=== PATIENT | female | born 1940 | race Caucasian/White ===

== ENCOUNTER 2016-07-06 13:46 | Emergency (ER) | payer MEDICARE ==
[~2016-07-06 13:46] MED LIST: ACETAMINOPHEN-H1 TA2 PO; ADVAIR 250/501 EA INH; AGGRENOX 25 MG-1 CER PO; AGGRENOX 25/2001 EA; ALBUTEROL0.09 MG/A2 IH; ALBUTEROL2.5 MG/0.5 INH; ANAPROX DS550 MG PO; ANTIVERT25 MG PO; APRESOLINE50 MG PO; ASMANEX TW0.22 MG/A1 INH; ASMANEX220 MC1 INH; ASPIR 8181 MG PO; ASPIRIN81 M1 PO; ATIVAN1 MG PO; ATROVENT I0.5 MG/2.5 INH; Atrovent I0.5 MG/2.5 INH; BENTYL10 MG PO; BUMEX1 MG PO; CALCIUM + D 5001 TAB PO; CARAFATE1 G1 PO; CARVEDILOL12.5 MG PO; CATAPRES0.1 MG PO; CATAPRES0.2 MG PO; CEFEPIME1 GM/50 ML; CEFTIN250 MG PO; CIPRO500 MG PO; CLARITIN10 MG PO; CLEOCIN HCL150 MG PO; CLEOCIN150 MG PO; CLONIDINE0.1 MG PO; CLONIDINE0.2 MG; CLONIDINE0.2 MG PO; CLONIDINE0.3 MG PO; COREG12.5 M1 PO; COREG25 MG PO; CORTISPORIN 1%-10 M1 OT; CORTISPORIN 1%7.5 M1 OP; Carafate1 GM PO; Catapres-Tts 10.1 MG PO; DELTASONE5 MG PO; DIGOXIN0.125 MG PO; DOXYCYCLINE HY100 M3 PO; DOXYCYCLINE100 M3 PO; DULE1ARO INH; DUONEB 3 MG/3 ML3 M1 INH; DUONEB 3 MG/3 ML3 M1 NEB; DUONEB 3ML 3 MG/3 ML; ENULOSE10 GM/15 M PO; FERRIMIN 150150 M1 PO; FLAGYL500 MG PO; FLEET ADULT ENEM1 EA PO; FLEXERIL10 MG PO; FLONASE 0.05% 121 EA NAS; FLONASE0.05 MG/AC NS; HYDRALAZINE HC100 MG PO; HYDRALAZINE100 MG PO; IMDUR SA60 MG PO; IMDUR120 MG PO; KEFLEX500 MG PO; KENALOG0.1% TP; KRISTALOSE20 GM/PACK; LABETALOL HYDR300 MG PO; LISINOPRIL20 MG PO; LOMOTIL 0.025 M1 TA1 PO; MACROBID100 M1 PO; MACRODANTIN100 MG PO; MEDROL DOSEPAK4 MG PO; METFORMIN HCL500 MG PO; METFORMIN500 MG PO; METOPROLOL50 MG PO; MINITRAN0.2 MG/HR TD; MIRALAX17 GM/DOSE PO; MOM30 M1 PO; NASONEX; NASONEX0.05 MG/AC; NEXIUM40 MG PO; NIFEDIPINE ER60 MG PO; NIFEDIPINE60 MG PO; NIFEREX150 MG PO; NITRO-DUR0.2 MG/HR T; NITROSTAT0.6 MG SL; OCEAN104 ML NS; ORASONE20 MG; OXYGEN; OXYGEN NAS; PERFOROMIS20 MCG/2 M INH; PHENERGAN W/CO120 ML PO; PHOSLO667 M1 PO; PLAVIX75 M1 PO; PLAVIX75 MG PO; PRAVACHOL40 MG PO; PRAVASTATIN SOD40 MG PO; PREDNISONE10 MG PO; PREDNISONE20 M1 PO; PREVACID SOLUTA30 MG PO; PRILOSEC20 MG PO; PRINIVIL20 MG PO; PROAIR HFA0.09 MG/AC; PROAIR HFA8.5 GM IH; PROAIR HFA8.5 GM INH; PROCARDIA XL60 MG PO; PROTONIX40 MG PO; PROVENTIL0.09 MG/A1 INH; PROVENTIL0.09 MG/AC IH; PULMICORT RESP0.5 MG; PULMICORT RESP0.5 MG INH; PULMICORT RESP0.5 MG NEB; PULMICORT0.2 MG/ACT INH; SONATA10 MG PO; SPIRIVA -- 3018 MCG INH; SPIRIVA18 MCG IH; TESSALON PERLE100 MG PO; Tessalon Perle100 MG PO; VANCOMYCIN HCL500 MG; VENTOLIN 02.5 MG/3 M INH; VENTOLIN0.09 MG/AC IH; VIBRAMYCIN100 MG PO; VICODIN 5/500 505 MG PO; VITAMIN D1000 IU PO; VITAMIN D31000 IU PO; XANAX0.25 MG PO; ZANTAC 150150 MG PO; ZANTAC150 MG PO; ZESTRIL20 MG PO; ZITHROMAX TRI-500 M1 PO; ZITHROMAX Z PA250 MG PO; ZITHROMAX250 MG PO; ZOFRAN ODT4 MG PO; ZOFRAN ODT4 MG SL; [UNRECOGNIZED DRUG - OTHER] PO
[2016-07-06 13:55] VITALS: BP 145/63
[2016-07-06] MEDS ORDERED: PROTONIX40 MG PO (15:29)
[2016-08-06] MEDS ORDERED: Atrovent I0.5 MG/2.5 INH (12:02)
[2016-08-06] MEDS ORDERED: CLONIDINE HCL0.1 MG PO (12:03)
[2016-08-08] MEDS ORDERED: PREDNISONE10 MG PO (11:07)
[2016-08-08] MEDS ORDERED: ZITHROMAX250 MG PO (11:07)
[2016-08-09] MEDS ORDERED: DOXYCYCLINE100 M3 PO (20:07)
== END 2016-07-06 15:45 | disposition home or self-care (01) ==
LOC: ED 13:46
DX: K21.9 Gastro-esophageal reflux disease without esophagitis (principal); Z88.0 Allergy status to penicillin; Z88.1 Allergy status to other antibiotic agents; Z88.2 Allergy status to sulfonamides; Z88.6 Allergy status to analgesic agent; Z88.8 Allergy status to other drugs, medicaments and biological substances; Z90.49 Acquired absence of other specified parts of digestive tract; Z90.710 Acquired absence of both cervix and uterus; Z87.891 Personal history of nicotine dependence; Z79.899 Other long term (current) drug therapy

== ENCOUNTER 2016-07-20 20:46 | Emergency (ER) | payer MEDICARE ==
[~2016-07-20] VITALS: Ht 165.1 cm; Wt 71.2 kg
[2016-07-20 20:49] VITALS: BP 166/74
[2016-08-06] MEDS ORDERED: Atrovent I0.5 MG/2.5 INH (12:02)
[2016-08-06] MEDS ORDERED: CLONIDINE HCL0.1 MG PO (12:03)
[2016-08-08] MEDS ORDERED: PREDNISONE10 MG PO (11:07)
[2016-08-08] MEDS ORDERED: ZITHROMAX250 MG PO (11:07)
[2016-08-09] MEDS ORDERED: DOXYCYCLINE100 M3 PO (20:07)
== END 2016-07-20 21:17 | disposition home or self-care (01) ==
LOC: ED 20:46
DX: Z76.0 Encounter for issue of repeat prescription (principal); I12.0 Hypertensive chronic kidney disease with stage 5 chronic kidney disease or end stage renal disease; N18.6 End stage renal disease; K21.9 Gastro-esophageal reflux disease without esophagitis; I25.10 Atherosclerotic heart disease of native coronary artery without angina pectoris; J44.9 Chronic obstructive pulmonary disease, unspecified; E78.5 Hyperlipidemia, unspecified; Z87.891 Personal history of nicotine dependence; Z90.49 Acquired absence of other specified parts of digestive tract; Z90.710 Acquired absence of both cervix and uterus; Z79.82 Long term (current) use of aspirin; Z88.0 Allergy status to penicillin; Z88.1 Allergy status to other antibiotic agents; Z88.2 Allergy status to sulfonamides; Z88.8 Allergy status to other drugs, medicaments and biological substances

== ENCOUNTER 2016-11-03 17:31 | Emergency (ER) | payer MEDICARE ==
[~2016-11-03] VITALS: Ht 165.1 cm; Wt 72.6 kg
[~2016-11-03 17:31] MED LIST changes: +CLONIDINE HCL0.1 MG PO
[2016-11-03 17:39] VITALS: BP 135/63
[2016-11-03 18:04] LABS: BASO # 0.1 10*3/uL (0.0-0.1); BASO % 0.5 % (0.0-1.0); EOS # 0.4 10*3/uL (0.0-0.4); EOS % 3.5 % (1.0-4.0); HEMATOCRIT 38.2 % (37.0-47.0); HEMOGLOBIN 12.8 g/dl (12.0-16.0); IG # 0.1 10*3/uL (0.0-0.1); LYMPH # 2.6 10*3/uL (1.3-4.4); MEAN CELL VOLUME 100.3 fl (81.0-99.0); MEAN CORPUSCULAR HGB 33.6 pg (27.0-31.0); MEAN CORPUSCULAR HGB CONC 33.5 g/dl (33.0-37.0); MEAN PLATELET VOLUME 11.3 fl (9.6-12.3); MONO # 0.6 10*3/uL (0.1-1.0); MONO % 6.3 % (3.0-9.0); NEUT # 6.6 10*3/uL (2.3-7.9); NEUT % 64.1 % (47.0-73.0); PLATELET COUNT AUTOMATED 191 10*3/uL (130-400); RED BLOOD COUNT 3.81 10*6/uL (4.10-5.10); RED CELL DISTRI WIDTH 13.9 % (0-14.5); WHITE BLOOD COUNT 10.2 10*3/uL (4.8-10.8)
[2016-11-03 18:10] LABS: BILIRUBIN NEGATIVE (NEGATIVE); BLOOD NEGATIVE (NEGATIVE); CLARITY SL CLOUDY (CLEAR); COLOR YELLOW (YELLOW); GLUCOSE NEGATIVE (NEGATIVE); KETONE NEGATIVE (NEGATIVE); LEUKO ESTERASE NEGATIVE (NEGATIVE); NITRITE NEGATIVE (NEGATIVE); PH 5.5 (5.0-9.0); PROTEIN 1+ (NEGATIVE); UROBILINOGEN 0.2 E.U./dl (0.2-1.0)
[2016-11-03 18:16] LABS: BACTERIA 2+; EPITHELIAL CELLS 35-40; URINE REFLEX COMMENT YES (NO)
[2016-11-03 18:19] LABS: ALBUMIN 3.4 gm/dl (3.1-4.5); BILIRUBIN, TOTAL 0.3 mg/dl (0.2-1.0); POTASSIUM 3.7 mmol/L (3.5-5.1)
== END 2016-11-03 19:23 | disposition home or self-care (01) ==
LOC: ED 17:31
PROVIDERS: Nurse Practitioner Family
DX: N83.201 Unspecified ovarian cyst, right side (principal); Z87.891 Personal history of nicotine dependence; Z90.49 Acquired absence of other specified parts of digestive tract; Z79.82 Long term (current) use of aspirin; Z79.899 Other long term (current) drug therapy; Z88.0 Allergy status to penicillin; Z88.1 Allergy status to other antibiotic agents; Z88.2 Allergy status to sulfonamides; Z88.8 Allergy status to other drugs, medicaments and biological substances; Z91.018 Allergy to other foods

== ENCOUNTER 2016-11-20 23:29 | Emergency (ER) | payer MEDICARE ==
[~2016-11-20] VITALS: Ht 165.1 cm; Wt 73.0 kg
[2016-11-20 23:53] VITALS: BP 119/60
[2016-11-21 00:14] LABS: BASO % 0.3 % (0.0-1.0); EOS # 0.4 10*3/uL (0.0-0.4); EOS % 3.8 % (1.0-4.0); HEMATOCRIT 40.7 % (37.0-47.0); HEMOGLOBIN 13.5 g/dl (12.0-16.0); LYMPH # 2.3 10*3/uL (1.3-4.4); LYMPH % 24.8 % (27.0-41.0); MEAN CELL VOLUME 100.7 fl (81.0-99.0); MEAN CORPUSCULAR HGB 33.4 pg (27.0-31.0); MEAN CORPUSCULAR HGB CONC 33.2 g/dl (33.0-37.0); MEAN PLATELET VOLUME 12.3 fl (9.6-12.3); MONO # 0.7 10*3/uL (0.1-1.0); MONO % 7.7 % (3.0-9.0); NEUT # 5.8 10*3/uL (2.3-7.9); PLATELET COUNT AUTOMATED 155 10*3/uL (130-400); RED BLOOD COUNT 4.04 10*6/uL (4.10-5.10); RED CELL DISTRI WIDTH 14.3 % (0-14.5); WHITE BLOOD COUNT 9.1 10*3/uL (4.8-10.8)
[2016-11-21 00:35] LABS: ALBUMIN 3.7 gm/dl (3.1-4.5); BILIRUBIN, TOTAL 0.4 mg/dl (0.2-1.0); POTASSIUM 3.8 mmol/L (3.5-5.1); TOTAL PROTEIN 7.4 gm/dL (6.4-8.2)
[2016-11-21] MEDS ORDERED: PROTONIX40 MG PO (00:39)
== END 2016-11-21 01:06 | disposition home or self-care (01) ==
LOC: ED 23:29
PROVIDERS: Nurse Practitioner Family
DX: K21.9 Gastro-esophageal reflux disease without esophagitis (principal); Z87.891 Personal history of nicotine dependence; Z90.49 Acquired absence of other specified parts of digestive tract; Z95.5 Presence of coronary angioplasty implant and graft; I25.10 Atherosclerotic heart disease of native coronary artery without angina pectoris; I12.0 Hypertensive chronic kidney disease with stage 5 chronic kidney disease or end stage renal disease; N18.6 End stage renal disease; E78.5 Hyperlipidemia, unspecified; Z99.2 Dependence on renal dialysis; Z88.0 Allergy status to penicillin; Z88.1 Allergy status to other antibiotic agents; Z88.2 Allergy status to sulfonamides; Z88.6 Allergy status to analgesic agent; Z88.8 Allergy status to other drugs, medicaments and biological substances; Z91.018 Allergy to other foods; Z79.82 Long term (current) use of aspirin

== ENCOUNTER → 2016-12-03 | Outpatient (CLI) | payer MEDICARE | END | disposition home or self-care (01) | LOC: LAB 17:19 → US 18:00 | DX: N83.201 Unspecified ovarian cyst, right side (principal) ==

== ENCOUNTER 2017-01-20 19:19 | Emergency (ER) | payer MEDICARE ==
[~2017-01-20] VITALS: Ht 165.1 cm; Wt 72.6 kg
[2017-01-20 19:54] VITALS: BP 139/56
[2017-01-20] MEDS ORDERED: CEPHALEXIN500 M1 PO (21:47)
== END 2017-01-20 21:59 | disposition home or self-care (01) ==
LOC: ED 19:19
DX: I80.8 Phlebitis and thrombophlebitis of other sites (principal); Z88.0 Allergy status to penicillin; Z88.2 Allergy status to sulfonamides; Z88.1 Allergy status to other antibiotic agents; Z88.8 Allergy status to other drugs, medicaments and biological substances; Z91.018 Allergy to other foods; Z79.82 Long term (current) use of aspirin; Z79.899 Other long term (current) drug therapy; Z87.891 Personal history of nicotine dependence

== ENCOUNTER 2017-03-09 00:42 | Inpatient (IN) | payer MEDICARE ==
[~2017-03-09] VITALS: Ht 165.1 cm; Wt 75.0 kg
[2017-03-09] VITALS (8 sets, daily range): BP systolic 105–120; BP diastolic 43–63
[~2017-03-09 00:42] MED LIST changes: +CEPHALEXIN500 M1 PO
[2017-03-09 01:11] LABS: BASO % 0.5 % (0.0-1.0); EOS # 0.3 10*3/uL (0.0-0.4); EOS % 4.3 % (1.0-4.0); HEMATOCRIT 36.5 % (37.0-47.0); LYMPH # 2.1 10*3/uL (1.3-4.4); LYMPH % 27.2 % (27.0-41.0); MEAN CELL VOLUME 97.9 fl (81.0-99.0); MEAN CORPUSCULAR HGB 32.2 pg (27.0-31.0); MEAN CORPUSCULAR HGB CONC 32.9 g/dl (33.0-37.0); MEAN PLATELET VOLUME 12.3 fl (9.6-12.3); MONO # 0.5 10*3/uL (0.1-1.0); MONO % 6.6 % (3.0-9.0); NEUT # 4.7 10*3/uL (2.3-7.9); NEUT % 61.3 % (47.0-73.0); PLATELET COUNT AUTOMATED 139 10*3/uL (130-400); RED BLOOD COUNT 3.73 10*6/uL (4.10-5.10); RED CELL DISTRI WIDTH 13.6 % (0-14.5); WHITE BLOOD COUNT 7.7 10*3/uL (4.8-10.8)
[2017-03-09 01:27] LABS: ALBUMIN 3.4 gm/dl (3.1-4.5); CREATININE 3.71 mg/dL (0.55-1.02); POTASSIUM 3.9 mmol/L (3.5-5.1); TOTAL PROTEIN 6.7 gm/dL (6.4-8.2); TROPONIN I 0.036 ng/ml (<0.045)
--- NOTE | 2017-03-09 02:30 | NUR ---
A 76, admitted to [facility], under the services of KAITY Nielsen DO with a diagnosis of DRUG OVERDOSE. Chief complaint is TOOK HER B/P MEDS TWICE. Patient arrived via stretcher from ER. Monitor applied. Initial assessment completed. Vital signs taken and recorded. KAITY NIELSEN DO notified of admission to the unit. Orders received. See assessment for past medical history, medications and allergies. Patient and/or family oriented to unit. [facility] visitation policy reviewed. Clothing/patient valuable form completed. OMER ACEVEDO
--- NOTE | 2017-03-09 04:00 | NUR ---
BP/HR REMAINS STABLE.
[2017-03-09 06:13] LABS: BASO % 0.5 % (0.0-1.0); EOS # 0.2 10*3/uL (0.0-0.4); HEMATOCRIT 35.1 % (37.0-47.0); HEMOGLOBIN 11.7 g/dl (12.0-16.0); LYMPH % 30.1 % (27.0-41.0); MEAN CELL VOLUME 97.2 fl (81.0-99.0); MEAN CORPUSCULAR HGB 32.4 pg (27.0-31.0); MEAN CORPUSCULAR HGB CONC 33.3 g/dl (33.0-37.0); MEAN PLATELET VOLUME 12.9 fl (9.6-12.3); MONO # 0.4 10*3/uL (0.1-1.0); MONO % 6.2 % (3.0-9.0); NEUT % 59.9 % (47.0-73.0); PLATELET COUNT AUTOMATED 122 10*3/uL (130-400); RED BLOOD COUNT 3.61 10*6/uL (4.10-5.10); RED CELL DISTRI WIDTH 13.4 % (0-14.5); WHITE BLOOD COUNT 6.6 10*3/uL (4.8-10.8)
[2017-03-09 06:28] LABS: CREATININE 3.73 mg/dL (0.55-1.02); MAGNESIUM 2.7 mg/dL (1.5-2.1); PHOSPHOROUS 3.9 mg/dL (2.5-4.9); POTASSIUM 3.9 mmol/L (3.5-5.1)
[2017-03-09 06:34] LABS: THYROID STIM HORMONE (HS) 0.81 uIU/ml (0.358-4.75)
[2017-03-09 06:54] LABS: ACT PARTIAL THROMBO TIME 26.2 SECONDS (20.8-31.5)
[2017-03-09 07:18] LABS: VITAMIN D, 25-HYDROXY 34.3 ng/mL (30-100)
--- NOTE | 2017-03-09 10:50 | NUR ---
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
--- NOTE | 2017-03-09 11:28 | NUR ---
DC TO HOME
== END 2017-03-09 11:28 | disposition home or self-care (01) | DRG 917 ==
LOC: ED 00:42 → ICCU 01:37
PROVIDERS: Internal Medicine; Student in an Organized Health Care Education/Training Program; ADMIT Emergency Medicine
DX: T46.1X1A Poisoning by calcium-channel blockers, accidental (unintentional), initial encounter (principal); N18.6 End stage renal disease; I13.2 Hypertensive heart and chronic kidney disease with heart failure and with stage 5 chronic kidney disease, or end stage renal disease; Z99.81 Dependence on supplemental oxygen; I50.22 Chronic systolic (congestive) heart failure; I25.5 Ischemic cardiomyopathy; D64.9 Anemia, unspecified; E83.41 Hypermagnesemia; T44.7X1A Poisoning by beta-adrenoreceptor antagonists, accidental (unintentional), initial encounter; K21.9 Gastro-esophageal reflux disease without esophagitis; J44.9 Chronic obstructive pulmonary disease, unspecified; I25.10 Atherosclerotic heart disease of native coronary artery without angina pectoris; Z95.810 Presence of automatic (implantable) cardiac defibrillator; Z86.73 Personal history of transient ischemic attack (TIA), and cerebral infarction without residual deficits; Z85.528 Personal history of other malignant neoplasm of kidney; Z90.5 Acquired absence of kidney; Z87.891 Personal history of nicotine dependence; Z88.2 Allergy status to sulfonamides; Z88.0 Allergy status to penicillin; Y92.89 Other specified places as the place of occurrence of the external cause; Z99.2 Dependence on renal dialysis; Z91.041 Radiographic dye allergy status; Z88.1 Allergy status to other antibiotic agents; Z88.8 Allergy status to other drugs, medicaments and biological substances; Z91.018 Allergy to other foods; Z79.899 Other long term (current) drug therapy; Z79.82 Long term (current) use of aspirin; Z90.49 Acquired absence of other specified parts of digestive tract; Z90.710 Acquired absence of both cervix and uterus; Z98.42 Cataract extraction status, left eye; Z98.41 Cataract extraction status, right eye; Z84.89 Family history of other specified conditions; Z82.49 Family history of ischemic heart disease and other diseases of the circulatory system; I25.2 Old myocardial infarction

== ENCOUNTER 2017-07-02 11:19 | Emergency (ER) | payer MEDICARE ==
[~2017-07-02] VITALS: Ht 165.1 cm; Wt 68.5 kg
[2017-07-02 11:35] VITALS: BP 141/52
[2017-07-02] MEDS ORDERED: TESSALON PERLE100 M1 PO (11:56)
[2017-07-02] MEDS ORDERED: VIBRAMYCIN100 MG PO (11:56)
== END 2017-07-02 12:10 | disposition home or self-care (01) ==
LOC: ED 11:19
DX: J32.9 Chronic sinusitis, unspecified (principal); I25.10 Atherosclerotic heart disease of native coronary artery without angina pectoris; I50.22 Chronic systolic (congestive) heart failure; E78.5 Hyperlipidemia, unspecified; K21.9 Gastro-esophageal reflux disease without esophagitis; J44.9 Chronic obstructive pulmonary disease, unspecified; I10 Essential (primary) hypertension; N18.6 End stage renal disease; Z88.0 Allergy status to penicillin; Z88.2 Allergy status to sulfonamides; Z88.6 Allergy status to analgesic agent; Z88.1 Allergy status to other antibiotic agents; Z88.8 Allergy status to other drugs, medicaments and biological substances; Z79.82 Long term (current) use of aspirin; Z79.899 Other long term (current) drug therapy; Z99.2 Dependence on renal dialysis; Z90.49 Acquired absence of other specified parts of digestive tract; Z90.710 Acquired absence of both cervix and uterus; Z98.62 Peripheral vascular angioplasty status; Z87.891 Personal history of nicotine dependence

== ENCOUNTER 2017-07-11 04:17 | Inpatient (IN) | payer MEDICARE ==
[~2017-07-11] VITALS: Ht 165.1 cm; Wt 75.8 kg
[2017-07-11] VITALS (8 sets, daily range): BP systolic 121–154; BP diastolic 40–72
--- NOTE | ~2017-07-11 | PR ---
[place], [place] PROGRESS NOTE [facility]: [id number] UNIT #: [id number] ROOM: 525 DOCTOR: GARY ROJO MD,MYNOR BIRTHDATE: [birth year] DOS: 07/12/2017 SUBJECTIVE: She has been reported reduction of the chest congestion and cough. The patient denies symptoms of chest pain. Shortness of breath is improving. The wheezing was also decreasing. The patient was seen this afternoon sitting on the bed without any distress. OBJECTIVE: VITAL SIGNS: Normal temperature, respiratory rate ____, blood pressure 116/58. The pulse oxygen saturation on room air 92% saturation. HEENT: No acute change. NECK: Supple. CARDIOVASCULAR: S1, S2 audible. LUNGS: The patient was noted with scattered expiratory wheezing without any crackles. ABDOMEN: Soft, nontender, bowel sounds present. EXTREMITIES: Without any acute edema. LABORATORY DATA: BMP of the patient that was done today shows BUN 33, creatinine 2.34. Glucose normal. CBC, mild anemia, otherwise normal. IMPRESSION: 1. The patient with ongoing acute exacerbation of bronchial asthma with acute bronchitis with positive improvement noted with current medical management and use of doxycycline and the oral prednisone. 2. The patient with end-stage renal failure on chronic hemodialysis. PLAN OF TREATMENT: Reduce the dose of prednisone for the patient to the lower dose. Continuation of bronchodilators, oxygen supplementation and the antibiotics. The prednisone dose will be decreased from 60 mg b.i.d. to 40 mg b.i.d. dose. Other supportive plan of management to be continued as well. MYNOR VEGA MD CM:PNTRANS [phone] MYNOR ROJO MD 07/13/17 0136 interface
--- NOTE | ~2017-07-11 | EKG ---
[place], [place] ELECTROCARDIOGRAM REPORT NAME: AMANDA FERRIS UNIT #: [id number] ROOM: 525 DOCTOR: GARY ROJO MD,MYNOR BIRTHDATE: [birth year] DOS: 07/11/2017 TIME: 04:53 a.m. AV dual chamber pacemaker were noted with heart rate of 64 beats per minute. MYNOR VEGA MD CM:EKGRPT:ELECTROCARDIOGRAM REPORT [phone] MYNOR ROJO MD
--- NOTE | ~2017-07-11 | CON ---
[place], [place] REPORT OF CONSULTATION NAME: [facility]IS [facility] [id number] UNIT #: [id number] ROOM: 525 DOCTOR: MYNOR LEUNG MD BIRTHDATE: [birth year] DOS: 07/11/2017 CONSULTATION REQUESTED BY: Hospitalist services. REASON FOR CONSULTATION: Current exacerbation of COPD progression. HISTORY OF PRESENT ILLNESS: This is a 76-year-old white female who has been known to me with a past with history of COPD and bronchial asthma, seen in my office last Thursday. The patient has been noted with incomplete resolution of the respiratory symptom. She has been earlier seen in the Emergency Room for the patient with similar symptoms. She has been prescribed the amoxicillin rather doxycycline for the patient and reported no improvement in symptoms as she was seen in the office. The patient was prescribed the intravenous rather oral corticosteroid tapering dose of prednisone. She has been taken the medication, but the symptoms reported worsened for this patient with increased shortness of breath. The patient occurred with progressive cough. She denies any symptoms of chest pain or hemoptysis. The patient active symptoms started over 2 weeks ago. She has been admitted to the hospital. The patient because of failed outpatient treatment for the exacerbation of COPD management. She denies any chest pain at present time complain of some tightness in the chest, but excessive cough. REVIEW OF SYSTEMS: CONSTITUTIONAL SYMPTOMS: Fatigue and tiredness reported without symptoms of fever or chills. EYES: Denies any burning, redness, or tenderness. EARS, NOSE, THROAT SYMPTOMS: Denies any sore throat and hoarseness at the present time. Noted nasal congestion in the beginning of the current sickness, but it has been currently resolved. CARDIOVASCULAR SYSTEM: Denies angina pain, palpitation, edema in lower extremities. GASTROINTESTINAL: Denies any nausea, vomiting, dysphagia, abdominal pain, hematemesis, melena, hematochezia, or dysphagia. GENITOURINARY SYMPTOMS: End-stage renal failure without any suprapubic pain or flank pain. SKIN: The patient denies any rashes or itching. CENTRAL NERVOUS SYSTEM: Denies any dizziness, headache, diplopia, syncopal episode, tingling sensations. MUSCULOSKELETAL: Chronic joint pain, redness, or tenderness. Remaining systems were reviewed. They were noted all negative. PAST MEDICAL HISTORY: 1. Uncomplicated moderate persistent bronchial asthma. 2. Chronic obstructive pulmonary disease. 3. End-stage renal failure, hemodialysis, detention. 4. Type 2 diabetes mellitus. 5. Previous intubation and mechanical ventilation with severe right hemiparesis with complete resolution of neurologic deficit. 6. Coronary artery disease. 7. Left bundle branch block, history. [place], [place] REPORT OF CONSULTATION NAME: AMANDA FERRIS UNIT #: [id number] ROOM: [facility] DOCTOR: GARY ROJO MD,[facility] BIRTHDATE: [birth year] 8. Cardiac dysrhythmia with pacemaker insertion. PAST SURGICAL HISTORY: 1. Appendectomy. 2. Cholecystectomy. 3. Past intubation and mechanical ventilation. 4. Carpal tunnel surgery. 5. Cardiac catheterization and coronary artery stent placement and angioplasty. 6. Left nephrectomy in 2002 for the kidney cancer. In the past, she also had history of kidney cancer. The patient nephrectomy in 2002. 7. Past intubation. 8. Therapeutic bronchoscopy. 9. Permanent dialysis catheter insertion. 10. AICD. SOCIAL HISTORY: The patient lives at home. Denies any history of alcohol use or drug use. Tobacco use noted a teenager, pack of cigarettes per day until 2011. FAMILY HISTORY: Noted. Possible hypertension, coronary artery disease. Both parents have been . MEDICATIONS: Administered were noted use of Coreg, aspirin, Imdur, Protonix, simvastatin, Plavix, nifedipine, Coreg, Tessalon Perles, clonidine, DuoNeb q. 4h., doxycycline oral, morphine sulfate and others. ALLERGIES: THE PATIENT WITH A DRUG ALLERGIES NOTED ALLERGY: 1. PENICILLIN. 2. SULFA DRUGS. 3. FLUOROQUINOLONES. 4. IODINE. 5. DIMETAPP. 6. PSEUDOEPHEDRINE. 7. AZITHROMYCIN. 8. MOXIFLOXACIN. PHYSICAL EXAMINATION: GENERAL: A 76-year-old female who has been currently noted to be awake and alert without any acute distress at this time. She had not been noted with any acute distress, but excess coughing. The patient noted chest congestion and not expectorating any sputum. Height were recorded by the nursing staff as height of 5 feet 5 inches, weight of 164 pounds, BMI 27.2. VITAL SIGNS: Normal temperature, respiratory rate 16-58, blood pressure 125/40-140/62. Intake for the patient and output for the patient was not documented as yet. Pulse oxygen 94% saturation noted on room air. HEENT: Examination shows head was atraumatic. Eyes nonicterus. NECK: Supple. CARDIOVASCULAR: S1, S2 is audible. LUNGS: The patient was noted without any rhonchi. Expiratory wheezing noted in the lungs bilaterally. [place], [place] REPORT OF CONSULTATION NAME: AMANDA FERRIS UNIT #: [id number] ROOM: [facility] DOCTOR: GARY ROJO MD,MYNOR BIRTHDATE: [birth year] SKIN: The skin visible was noted without any lesions or rashes. EXTREMITIES: Noted without any edema, clubbing or cyanosis. MUSCULOSKELETAL: The patient was noted without any acute deformities. LABORATORY DATA: CBC of the patient of 07/11/2017, the patient's WBC count 11.6, hemoglobin 11, hematocrit 33.5, and platelet count 162,000. PT/PTT were noted as normal. CMP of the patient with this morning on admission, BUN 68, creatinine 2.50, glucose 170. Remaining electrolytes, LFTs normal. Troponin was also noted normal. Influenza A and B, nasal washing antigen negative. One view chest x-ray of the patient that was done for the patient 07/11/2017, shows bilateral basilar areas of atelectasis. IMPRESSION: 1. The patient will be currently admitted to outpatient treatment for the exacerbation of bronchial asthma, COPD with acute bronchitis with mucous impaction was considered. 2. The patient with end-stage renal failure regular hemodialysis. 3. History of labile hypertension. The patient as well. 4. MULTIPLE ALLERGY TO THE MEDICATION INCLUDING PENICILLIN, SULFA DRUGS AND FLUOROQUINOLONES. Limited the use of any antibiotic use for the patient other than the doxycycline. 5. Questionable history of steroids as methylprednisolone. PLAN OF TREATMENT: However, the patient has tolerated the use of prednisone without any difficulty. Previous to as an outpatient and other times. PLAN OF MANAGEMENT: Order the sputum for Gram stain and culture. The patient has been started on prednisone 60 mg b.i.d. with the taping started patient soon as improvement in symptoms noted. Respiratory viral culture for the patient will be obtained as well to exclude any viral etiology. The patient current exacerbation of COPD and bronchial asthma. Other supportive plan of management to be continued for the patient. The bronchodilator to be given every 4 hours. In case of any hypoxia, the oxygen supplementation will be used. Continuation of hemodialysis per order of the Nephrology services. There was no finding of congestive heart failure, fluid overload. DVT prophylaxis. Thanks for allowing me to participate in the care of this patient. MYNOR VEGA MD CM:CONSTR:REPORT OF CONSULTATION 1912 07/12/17 0434 interface
--- NOTE | ~2017-07-11 | PR ---
[place], [place] PROGRESS NOTE NAME: AMANDA FERRIS [facility] #: [id number] UNIT #: [id number] ROOM: 525 DOCTOR: GARY ROJO MD,MYNOR BIRTHDATE: [birth year] DOS: 07/13/2017 SUBJECTIVE: She has shown significant reduction and improvement in symptoms of wheezing with reduction of cough and shortness of breath resolved significantly. She has been currently sitting on the side of the bed. OBJECTIVE: VITAL SIGNS: Normal temperature. Respiratory rate 20, heart rate 109, and blood pressure 132/68. HEENT: Showed no acute change. NECK: Supple. CARDIOVASCULAR: S1, S2 is audible. LUNGS: The patient was noted without any wheezing or crackles present time. ABDOMEN: Soft and nontender. IMPRESSION: 1. Resolving acute exacerbation of chronic obstructive pulmonary disease and bronchial asthma and acute bronchitis, current plan and medical management. 2. End-stage renal failure, chronic, on hemodialysis. PLAN OF TREATMENT: The patient could be discharged home. The patient on oral doxycycline and tapering dose of prednisone, if approved by the primary care attending. From the pulmonary standpoint, the patient was noted ready for discharge. Outpatient followup patient as previously scheduled will be kept by the patient. MYNOR VEGA MD CM:PNTRANS [id number] MYNOR ROJO MD 07/13/17 2214 interface
[~2017-07-11 04:17] MED LIST changes: +TESSALON PERLE100 M1 PO
[2017-07-11 05:22] LABS: BASO % 0.1 % (0.0-1.0); EOS % 0.3 % (1.0-4.0); HEMATOCRIT 33.5 % (37.0-47.0); LYMPH # 1.9 10*3/uL (1.3-4.4); LYMPH % 16.4 % (27.0-41.0); MEAN CELL VOLUME 96.8 fl (81.0-99.0); MEAN CORPUSCULAR HGB 31.8 pg (27.0-31.0); MEAN CORPUSCULAR HGB CONC 32.8 g/dl (33.0-37.0); MEAN PLATELET VOLUME 11.5 fl (9.6-12.3); MONO # 0.5 10*3/uL (0.1-1.0); MONO % 4.3 % (3.0-9.0); NEUT % 77.9 % (47.0-73.0); PLATELET COUNT AUTOMATED 162 10*3/uL (130-400); RED BLOOD COUNT 3.46 10*6/uL (4.10-5.10); RED CELL DISTRI WIDTH 14.3 % (0-14.5); WHITE BLOOD COUNT 11.6 10*3/uL (4.8-10.8)
[2017-07-11 05:32] LABS: ACT PARTIAL THROMBO TIME 25.3 SECONDS (20.8-31.5); INTERNATIONAL NORM RATIO 1.1 (2.0-3.5)
[2017-07-11 05:40] LABS: ALBUMIN 3.5 gm/dl (3.1-4.5); CREATININE 3.5 mg/dL (0.55-1.02); POTASSIUM 3.5 mmol/L (3.5-5.1); TOTAL PROTEIN 6.6 gm/dL (6.4-8.2); TROPONIN I 0.039 ng/ml (<0.045)
[2017-07-12] VITALS: BP 155/45
[2017-07-12 07:15] LABS: BASO % 0.2 % (0.0-1.0); EOS # 0.2 10*3/uL (0.0-0.4); EOS % 1.7 % (1.0-4.0); HEMATOCRIT 36.3 % (37.0-47.0); HEMOGLOBIN 11.8 g/dl (12.0-16.0); LYMPH # 3.6 10*3/uL (1.3-4.4); LYMPH % 37.4 % (27.0-41.0); MEAN CELL VOLUME 97.6 fl (81.0-99.0); MEAN CORPUSCULAR HGB 31.7 pg (27.0-31.0); MEAN CORPUSCULAR HGB CONC 32.5 g/dl (33.0-37.0); MEAN PLATELET VOLUME 11.8 fl (9.6-12.3); MONO # 0.6 10*3/uL (0.1-1.0); MONO % 6.3 % (3.0-9.0); NEUT # 5.1 10*3/uL (2.3-7.9); NEUT % 53.7 % (47.0-73.0); PLATELET COUNT AUTOMATED 146 10*3/uL (130-400); RED BLOOD COUNT 3.72 10*6/uL (4.10-5.10); RED CELL DISTRI WIDTH 14.1 % (0-14.5); WHITE BLOOD COUNT 9.5 10*3/uL (4.8-10.8)
[2017-07-12 07:56] LABS: POTASSIUM 3.2 mmol/L (3.5-5.1)
[2017-07-12 07:58] LABS: CREATININE 2.34 mg/dL (0.55-1.02)
[2017-07-12 08:00] VITALS: BP 128/75
[2017-07-12 12:00] VITALS: BP 118/54
[2017-07-12 16:00] VITALS: BP 116/58
[2017-07-12 20:00] VITALS: BP 140/52
[2017-07-13] VITALS: BP 156/62
[2017-07-13 08:00] VITALS: BP 152/60
[2017-07-13 08:35] LABS: ALBUMIN 3.5 gm/dl (3.1-4.5); CREATININE 3.07 mg/dL (0.55-1.02)
[2017-07-13 08:37] LABS: TOTAL PROTEIN 6.4 gm/dL (6.4-8.2)
[2017-07-13 08:38] LABS: POTASSIUM 4.9 mmol/L (3.5-5.1)
[2017-07-13] MEDS ORDERED: PREDNISONE10 MG PO (10:25)
[2017-07-13 12:22] VITALS: BP 132/68
[2017-07-15 02:05] LABS: ADENOVIRUS Negative (Negative); INFLUENZA A Negative (Negative); INFLUENZA B Negative (Negative); METAPNEUMOVIRUS Negative (Negative); PARAINFLUENZA 1 Negative (Negative); PARAINFLUENZA 2 Negative (Negative); PARAINFLUENZA 3 Negative (Negative); RHINOVIRUS Positive (Negative); RSV A Negative (Negative); RSV B Negative (Negative)
== END 2017-07-13 13:55 | disposition home or self-care (01) | DRG 190 ==
LOC: ED 04:17 → 5E 05:39 → EDHOLD 05:39 → 5E 05:46
PROVIDERS: Emergency Medicine Emergency Medical Services; Family Medicine; Hospitalist; Student in an Organized Health Care Education/Training Program
PROC: 5A1D70Z Performance of Urinary Filtration, Intermittent, Less than 6 Hours Per Day (ICD-10-PCS; principal; 2017-07-11)
DX: J44.1 Chronic obstructive pulmonary disease with (acute) exacerbation (principal); N18.6 End stage renal disease; I13.2 Hypertensive heart and chronic kidney disease with heart failure and with stage 5 chronic kidney disease, or end stage renal disease; E11.22 Type 2 diabetes mellitus with diabetic chronic kidney disease; J45.41 Moderate persistent asthma with (acute) exacerbation; K21.9 Gastro-esophageal reflux disease without esophagitis; I50.22 Chronic systolic (congestive) heart failure; N25.81 Secondary hyperparathyroidism of renal origin; J20.9 Acute bronchitis, unspecified; I25.10 Atherosclerotic heart disease of native coronary artery without angina pectoris; E78.2 Mixed hyperlipidemia; D72.829 Elevated white blood cell count, unspecified; D63.8 Anemia in other chronic diseases classified elsewhere; Z90.49 Acquired absence of other specified parts of digestive tract; Z95.5 Presence of coronary angioplasty implant and graft; Z87.891 Personal history of nicotine dependence; Z99.2 Dependence on renal dialysis; Z95.810 Presence of automatic (implantable) cardiac defibrillator; Z88.0 Allergy status to penicillin; Z88.2 Allergy status to sulfonamides; Z88.8 Allergy status to other drugs, medicaments and biological substances; Z88.1 Allergy status to other antibiotic agents; Z91.041 Radiographic dye allergy status; I25.2 Old myocardial infarction; Z90.5 Acquired absence of kidney; Z90.710 Acquired absence of both cervix and uterus; Z98.42 Cataract extraction status, left eye; Z98.41 Cataract extraction status, right eye; Z83.79 Family history of other diseases of the digestive system; Z82.49 Family history of ischemic heart disease and other diseases of the circulatory system; Z79.899 Other long term (current) drug therapy; Z85.528 Personal history of other malignant neoplasm of kidney; D63.1 Anemia in chronic kidney disease

== ENCOUNTER 2017-07-20 02:25 | Inpatient (IN) | payer MEDICARE ==
[2017-07-20] VITALS (24 sets, daily range): BP systolic 121–213; BP diastolic 51–132
[~2017-07-20] VITALS: Ht 162.6 cm; Wt 69.4 kg
--- NOTE | ~2017-07-20 | PR ---
[place], [place] PROGRESS NOTE NAME[id number] UNIT #: [id number] ROOM: [facility] DOCTOR: GARY ROJO MD,MYNOR BIRTHDATE: [birth year] DOS: 07/24/2017 PULMONARY AND CRITICAL CARE MANAGEMENT NOTE SUBJECTIVE: The patient remains on the mechanical ventilator, assist control, volume control mode of mechanical ventilation. With the reduction in sedation, she has been noted with appropriate improvement in the mental status and has not been noted with the acute hemodynamic instability at this time. There was no tachycardia or fever. She has been tolerating the feeding very well of [employer], which was increased to 40 mL yesterday. She had not been noted with any other acute new issues at the present time. The hemodialysis has been given per order from Nephrology service, completed the hemodialysis yesterday. OBJECTIVE: VITAL SIGNS: For the patient, which has been recorded, shows the temperature remains normal, respiratory rate 18-22, heart rate 60-67, blood pressure 139/58-148/61. The pulse oxygen saturation with 50% oxygen is 98% saturation. HEENT: Examination shows no acute change. The patient remained orally intubated. NG tube is in place. NECK: Supple. CARDIOVASCULAR: S1, S2 audible. LUNGS: General reduction in breath sounds. There were no wheeze or crackles heard. ABDOMEN: Flat, soft, and nontender. Bowel sounds present. EXTREMITIES: Without any edema, clubbing, or cyanosis. CENTRAL NERVOUS SYSTEM: Currently nonfocal. SKIN: Visible skin showed dryness of the skin with scattered area of bruising, chronic. MUSCULOSKELETAL: No acute deformities. LABORATORY DATA: Arterial blood gases this morning, assist control, volume control, 50% oxygen, pH of 7.40, pCO2 of 43, pO2 100. CBC of the patient from 07/24/2017, WBC count 13.9, hemoglobin 12.2, hematocrit 36.2, platelet count 70,000. CMP this morning, BUN 79, creatinine 3.74, glucose 197. Remaining electrolytes normal. IMAGING STUDIES: Chest x-ray done this morning shows endotracheal tube noted in appropriate place at this time. There was no acute pulmonary infiltration visible. IMPRESSION: 1. The patient with acute exacerbation of chronic obstructive pulmonary disease and bronchial asthma and has acute bronchitis. 2. Acute pneumonia, with aspiration also suspected, treated with the antibiotics. 3. The patient with the protein-calorie malnutrition. 4. End-stage renal failure, chronic, on hemodialysis as well. 5. Mild anemia of chronic disease. 6. Overall frail status, as well. [place], [place] PROGRESS NOTE NAME: AMANDA FERRIS UNIT #: [id number] ROOM: [facility] DOCTOR: GARY ROJO MD,MYNOR BIRTHDATE: [birth year] PLAN OF MANAGEMENT: The sedation will be completely discontinued. The patient has been started on CPAP 5, pressure support of 10, was noted with a tidal volume of about 450-500 mL intermittently with respiratory rate about 20-22. The sedation remains off in this patient during the trial of CPAP if tolerated without any hemodynamic problems or respiratory problem for other 2 hours. After that, the arterial blood gases will be done and that will be assessed. The patient will be also assessed clinically as well and if noted stable for the patient with adequate oxygenation, she will be considered for possibility of liberation from mechanical ventilator. Otherwise, all the previous treatment as ordered for the patient will be continued without any changes. Supportive care, other therapy, plan of management. Continue maximum nutrition support. If the patient does get liberated from mechanical ventilation, she will continue to have NG tube in place for the next 24 hours before assessment of the swallowing. Ventilator bundle management, noted in progress. Another prealbumin level of the patient will be obtained for tomorrow. Total time on pulmonary critical care evaluation and management was 38 minutes. MYNOR VEGA MD CM:PNTRANS [id number] MYNOR ROJO MD 07/24/17 5496 interface
--- NOTE | ~2017-07-20 | PR ---
[place], [place] PROGRESS NOTE NAME: AMANDA FERRIS UNIT #: [id number] ROOM: [facility] DOCTOR: GARY ROJO MD,MYNOR BIRTHDATE: [birth year] DOS: 07/25/2017 SUBJECTIVE: The patient was noted comfortable at this time. She has been noted anxiety intermittently at times. She was successfully liberated from the mechanical ventilator in the last 24 hours. She has developed respiratory distress early this morning. The patient had arterial blood gases were done. She had been given Xanax for the patient. The patient was kept n.p.o. for the current respiratory status. NG tube has been pulled out by patient accidentally yesterday. She had not noted any hemodynamic instability. The BiPAP was started for the patient this morning for the ____ respiratory distress noted effective. She has been still noted with tachypnea at time. Noted fully awake and alert, does follow vocal commands. OBJECTIVE: VITAL SIGNS: The patient's temperature remains normal, respiratory rate 17-20, heart rate 60-77, blood pressure 133/51-158/76. The pulse oxygen saturation on 4 liter nasal cannula 93%, saturation currently BiPAP for this patient with pulse oxygen saturation recorded with 50% oxygen Venturi mask and the BiPAP was 99-100% saturation. HEENT: Examination shows edentulous status. Head was atraumatic. Eyes nonicterus. CARDIOVASCULAR: S1, S2 is audible. LUNGS: The patient was noted with moderate decreased breath sounds as previously. ABDOMEN: Soft, nontender. EXTREMITIES: Without any edema. SKIN: No lesions or rashes. Dry skin was noted with scattered bruising of the patient, which is chronic. MUSCULOSKELETAL SYMPTOM: No deformities. CENTRAL NERVOUS SYSTEM: Remains intact. The previous review of system and the past history otherwise recorded as noted previously. Consultation remains unchanged. LABORATORY DATA: Arterial blood gas today, pH of 7.45, pCO2 of 43, pO2 of 71 on 50% Venturi mask earlier. The renal function panel today, glucose 172, BUN 118, creatinine 4.06, chloride of 97, albumin of 2.7. CBC: WBC count 10.9, hemoglobin and hematocrit normal, platelet count was noted as 69,000. The chest x-ray that was done for the patient this morning and later on reviewed for this patient shows no acute pulmonary infiltration were identified. IMPRESSION: 1. The patient who has been currently noted with acute respiratory failure, a combination of congestive heart failure as well as acute aspiration pneumonia for this patient and acute bronchitis with exacerbation of chronic obstructive pulmonary disease and uncontrolled hypertension. The patient with flash pulmonary edema superimposed. 2. End-stage renal failure, hemodialysis. The patient has been started on hemodialysis this morning, but it was discontinued since the patient was noted with respiratory distress. [place], [place] PROGRESS NOTE NAME: AMANDA FERRIS UNIT #: [id number] ROOM: [facility] DOCTOR: GARY ROJO MD,MYNOR BIRTHDATE: [birth year] PLAN OF MANAGEMENT: Continue with BiPAP, the patient's current setting of 16/02 for this patient as tolerated. Continue anxiolytic. The patient will be started on clear liquid diet, which has been used by the patient and then progressed to her usual diet advancement. Close aspiration precautions. Solu-Medrol for the patient will be continued, but the dose will be decreased for this patient at this time to 40 mg daily since the patient's wheezing has been improving and bronchospasm was resolving. Continuation of the ____ electrolyte management. Monitoring anemia for the patient as well. Thrombocytopenia of the patient going to be monitored closely. Continue DVT prophylaxis alternative mode. Other treatment, then, anticoagulation with the SCDs. Other supportive plan of therapy, care plan. To break the patient off the BiPAP. The patient just for the meals will be given. Keep the patient in Intensive Care Unit for the next 24 hours until the respiratory status would be noted sufficient improvement prior to consideration of transfer to the custodial facility. All other supportive plan of management as well. Hemodialysis certainly could be tried again tomorrow morning, depends on the patient's resolutions, current respiratory distress, and stability, and overall respiratory status and other medical illnesses. However, the decision is to be made by the Nephrology services. MYNOR VEGA MD CM:PNTRANS [phone] [id number] MYNOR ROJO MD 07/25/17 2016 interface
--- NOTE | ~2017-07-20 | CON ---
[place], [place] REPORT OF CONSULTATION NAME: AMANDA FERRIS UNIT #: [id number] ROOM: [facility] DOCTOR: GARY ROJO MD,MYNOR BIRTHDATE: [birth year] DOS: 07/20/2017 PULMONARY CRITICAL CARE, EVALUATION, MANAGEMENT NOTE REASON FOR CONSULTATION: To assess the patient for current acute respiratory failure. HISTORY OF PRESENT ILLNESS: This is a 76-year-old white female patient, who has been admitted to the hospital this morning. Consultation was obtained from the hospitalist services. The patient presented to the hospital. The patient developed severe shortness of breath, which occurred a few hours prior to the admission. She has been recently treated in this hospital with positive rhinovirus, isolative, with nasopharyngeal washing with acute exacerbation of COPD. The patient was discharged home on tapering dose of prednisone and was doing very well until the current exacerbation of shortness of breath occurred. The patient was brought to the hospital. She was initially tried on the BiPAP because of severe respiratory failure. The patient does have vomiting resulting possibility of aspiration, but cannot be completely confirmed. She has been intubated, started on mechanical ventilation. She was noted severe hypertensive response upon admission in the Emergency Room. She has been getting intravenous Tridil drip at this time, remains on mechanical ventilator, sedated. Further history of the patient essentially cannot be obtained at the present time since the patient is on intubation and on mechanical ventilation. Remaining history actually is from review of my medical records from past consultation and review of the current documentation and other physician notes review. The patient had been admitted to the hospital from 07/11/2017 to 07/13/2017 and treated for acute exacerbation of bronchial asthma. PAST MEDICAL HISTORY: 1. Uncomplicated moderate persistent bronchial asthma. 2. Chronic obstructive pulmonary disease. 3. End-stage renal failure, on dialysis. 4. Type 2 diabetes mellitus. 5. Past intubation and mechanical ventilation. 6. 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 7. Coronary artery disease. 8. Left bundle branch block. 9. History of cardiac dysrhythmia, requiring pacemaker insertion. PAST SURGICAL HISTORY: 1. Appendectomy. 2. Cholecystectomy. 3. Past intubation and mechanical ventilation. 4. Past carpal tunnel surgery. 5. Cardiac catheterization, coronary artery stent placement and angioplasty. 6. Left nephrectomy in 2002 for kidney cancer. 7. Therapeutic bronchoscopy. 8. Permanent dialysis catheter insertion. 9. AICD. [place], [place] REPORT OF CONSULTATION NAME: AMANDA FERRIS UNIT #: [id number] ROOM: [facility] DOCTOR: GARY ROJO MD,MYNOR BIRTHDATE: [birth year] SOCIAL HISTORY: The patient lives at home. No history of alcohol use or illicit drug use. Tobacco use noted as teenager, pack of cigarettes per day until 2011. FAMILY HISTORY: Noted for hypertension, coronary artery disease in parents who have been . CURRENT MEDICATIONS: Noted use of intravenous Tridil drip, Tylenol, IV propofol. DRUG ALLERGY HISTORY: 1. PENICILLIN. 2. SULFA DRUGS. 3. FLUOROQUINOLONE. 4. IODINE. 5. DIMETAPP. 6. METHYLPREDNISOLONE. 7. ZITHROMAX. 8. BROMPHENIRAMINE. PHYSICAL EXAMINATION: GENERAL: A 76-year-old female, who has been noted currently frail, on mechanical ventilator without any distress. Height of 5 feet 4 inches, weight of 162 pounds, BMI 27.9. VITAL SIGNS: For the patient which were recorded showed the temperature of the patient noted as 100.5 degree Fahrenheit, tympanic membrane. Respiratory rate ranged between 36-24, heart rate of 118-99. Blood pressure on admission was noted 210/110-144/67. Intake was not documented, the output of the patient was not recorded. Pulse ox saturation on 45% noted, currently on mechanical ventilator, 98 percent saturation 45% oxygen supplementation. HEENT: The patient currently intubated on mechanical ventilator. Orogastric tube has been inserted. NECK: Supple. CARDIOVASCULAR: S1, S2 is audible. LUNGS: The patient was noted without any crackles or rhonchi. Breaths are noted mildly decreased bilaterally. ABDOMEN: Flat, soft, nontender. EXTREMITIES: The patient was noted without any acute edema. Dryness of the skin was noted. VISIBLE SKIN: No lesions or rashes. MUSCULOSKELETAL: No deformities. CENTRAL NERVOUS SYSTEM: Currently, the patient is intubated. LABORATORY DATA: CMP for the patient on 07/20/2017 on admission: Glucose 121, BUN 53, creatinine 3.34. LFT normal except alkaline phosphatase minimally elevated at 121. Troponin 0.61. CBC of the patient on 07/20/2017: WBC count 14.6. Remaining CBC for the patient was noted with platelet count of 115,000. Arterial blood gas: pH of 7.32, pCO2 of 47, pO2 of 132 on 60% oxygen. Arterial blood gas repeated later on this morning: pH of 7.28, pCO2 50, pO2 38, which is [place], [place] REPORT OF CONSULTATION NAME: AMANDA FERRIS UNIT #: [id number] ROOM: [facility] DOCTOR: GUSTAVO LEUNG MDM BIRTHDATE: [birth year] a venous gas. Repeat arterial blood gas of the patient, arterial: pH of 7.38, pCO2 43.2, pO2 94.9. The troponin of the patient, the second and the third set were noted minimal elevation, the last set as 0.57. Reviewed the radiology data for this patient. The chest x-ray that was done for the patient on admission was noted cardiomegaly, pulmonary venous congestion with early pulmonary edema picture without any crossing consolidation. Chest x-ray, endotracheal tube for the patient was noted in appropriate position as well as the orogastric tube noted in appropriate position. Chest x-ray, the patient still noted with mild pulmonary edema. IMPRESSION: 1. The patient has been currently to the hospital, appeared like a flash pulmonary edema with uncontrolled hypertension, which has been seen in the past on the same patient, previous requiring intubation and mechanical ventilation, acute, rule out superimposed infection including tracheobronchitis as well. 2. History of end-stage renal failure, on hemodialysis. 3. Elevation of troponin, most likely secondary to uncontrolled hypertension, myocardial infarction to be excluded. 4. The patient has end-stage renal failure, on hemodialysis regularly. 5. Severe protein-calorie malnutrition status as well. PLAN OF MANAGEMENT: The patient has been receiving DVT prophylaxis. She was ordered ventilator management. Nutrition support has been started. Empirical use of the antibiotic at the present time for the patient with doxycycline until the infection is completely excluded. Obtain blood culture for the patient as well. Monitor respiratory status of the patient closely as well. Additional treatment changes for the patient to be made based on progression of the illness. Use of bronchodilator every 4 hours as well for the respiratory management. Usual care. Additional treatment changes need to be made based on progression of the illness. Closely monitor the patient for the progression of the respiratory status. The patient will be started prednisone as well as previous taken by the patient that has not been completed total duration for exacerbation of COPD and bronchial asthma management. The respiratory cultures have been ordered. Nephrology Service is consulted for the patient whether the patient will get hemodialysis today, we leave to their assessment. Continue to try the patient to manage the uncontrolled hypertension. Supportive therapy, plan of management and other care. Usual treatment. Additional treatment and other care. Monitor chest x-ray for the patient as well. Monitor with daily labs as well and the arterial blood gases. Adjust the mechanical ventilator setting to maintain pulse ox saturation 92% or greater. Usual care and other plan of treatment. Total time on pulmonary critical care evaluation and management was 48 minutes. [place], [place] REPORT OF CONSULTATION NAME: AMANDA FERRIS UNIT #: [id number] ROOM: [facility] DOCTOR: MYNOR LEUNG MD BIRTHDATE: [birth year] MYNOR VEGA MD CM:CONSTR:REPORT OF CONSULTATION 1701 07/21/17 0014 interface
--- NOTE | ~2017-07-20 | PR ---
[place], [place] PROGRESS NOTE NAME: [facility] FERRIS [id number] UNIT #: [id number] ROOM: [facility] DOCTOR: GARY ROJO MD,MYNOR BIRTHDATE: [birth year] DOS: 07/22/2017 SUBJECTIVE: The patient was seen and examined on 07/22/2017, remains in the Intensive Care Unit. The patient has coughed and self-extubated yesterday requiring intubation success without difficulty. Currently, the patient has been sedated noted on mechanical ventilation. She has been noted comfortable without any distress at this time, assist control, volume control mechanical ventilation to 40% oxygen. She has completed the hemodialysis yesterday, did not require vasopressor therapy. The blood pressure has been noted, improved and normal range at this time with previous use of Tridil drip. She has been continued with the feeding and has tolerated with the NG tube. Yesterday, the patient was self-extubated, during the intubation, the patient was noted large vomitus resulting in possibility of aspiration, the requirement of oxygen has been increased to 70%, which has been gradually decreased to 65%. Currently, the patient has been comfortably resting, sedated, and the patient remains on mechanical ventilator. PHYSICAL EXAMINATION: VITAL SIGNS: Low grade fever noted 100.8 degrees Fahrenheit. The patient not noted with tachycardia. Heart rate ranges between 63-77. Blood pressure ranges between 125/55-137/63. Intake was recorded as 950 mL and output 377 mL. The pulse oxygen saturation was 65%, 98%-99% saturation. HEENT: The patient is currently orally intubated, orogastric tube is in place. Head was atraumatic. NECK: Supple. CARDIOVASCULAR: S1, S2 is audible. LUNGS: Moderately decreased breath sounds without any wheezing or crackles at the present time. Breaths are noted mildly decreased bilaterally. ABDOMEN: Soft, flat, nontender, bowel sounds present. SKIN: Dryness of the skin: No lesions or rashes. MUSCULOSKELETAL: No deformities. CENTRAL NERVOUS SYSTEM: Currently, the patient is sedated, but described with normal mental status with sedation vacation this morning per nursing staff. LABORATORY DATA: Today, CBC, WBC count 13.4, hemoglobin 11.9, hematocrit 35.9, platelet count 68,000, 92% segmented neutrophil. Endotracheal aspirate, normal mason. Final results, arterial blood gas this morning, pH of 7.39, pCO2 of 44, pO2 of 97.5. Blood culture, no bacterial growth from the 15 of this month. Chest x-ray that was done this morning shows endotracheal tube in appropriate position at the present time. It was rotated towards the right for the patient. There were no gross pulmonary infiltrations noted. There was no finding of congestive heart failure, AICD noted in place in the left chest. Endotracheal tube was noted tip about 6 cm above the eolise level. IMPRESSION: 1. The patient was currently noted with acute respiratory failure, potential aspiration from the vomitus, suspected with increased hypoxia. 2. Improvement in the uncontrolled hypertension and pulmonary edema, congestive heart failure after hemodialysis and medical management of blood pressure. 3. Severe protein-calorie malnutrition. [place], [place] PROGRESS NOTE NAME: AMANDA FERRIS UNIT #: [id number] ROOM: [facility] DOCTOR: GUSTAVO LEUNG MDM BIRTHDATE: [birth year] 4. Resolving exacerbation of bronchial asthma, improvement in the wheezing noted in the last 24 hour use of corticosteroids. 5. Anemia of chronic disease as well. 6. Low grade fever, which has been resolved. There were no cultures available for the patient new, which has been showing any infection in the blood culture, the patient so far noted no bacterial growths. PLAN OF MANAGEMENT: Reduce the dose of Solu-Medrol to 40 mg b.i.d. Use of the Reglan for the patient if necessary to improve any gastroparesis. The arterial blood gases will be repeated again in about 4-6 hours to reassess the oxygenation to titrate the oxygen down to 92% or greater. Continue ventilator bundle management. Continue bronchodilator every 4 hours as well. Usual care with additional treatment changes will be done based on the progression of the illness. Endotracheal tube will be advanced by 3 cm for the patient to keep at the appropriate level as well. Other supportive therapy, plan of management. The patient not noted a candidate for weaning at this time. Close monitoring will be continued. The patient will be reassessed tomorrow morning for possible liberation from mechanical ventilation. Usual care. Continue monitoring chest x-ray and other hemodynamics. Total time for pulmonary critical evaluation and management was 40 minutes. MYNOR VEGA MD CM:PNTRANS [id number] MYNOR ROJO MD 07/27/17 0455 interface
--- NOTE | ~2017-07-20 | PR ---
[place], [place] PROGRESS NOTE NAME: AMANDA FERRIS UNIT #: [id number] ROOM: [facility] DOCTOR: GARY ROJO MD,MYNOR BIRTHDATE: [birth year] DOS: 07/26/2017 SUBJECTIVE: The patient was continued with the BiPAP, the patient's respiratory distress seemed to be doing better with that. Later part of today for this patient, she had developed progressive increased respiratory distress with worsening of the oxygenation with the BiPAP as well. She was also noted significant tachypnea as well. Decision was made for the patient to be intubated. The patient has been intubated this afternoon by the resident staff with some difficulty; however, the intubation was done at this time, the patient noted on mechanical ventilation. With the insertion of the NG tube, epistaxis was noted for the patient from the left nostril. The patient has not been noted any hypotension for the patient actually was noted with hypertensive response. The patient has received the incomplete hemodialysis yesterday for this patient because of respiratory distress. It was discontinued. She has been assessed by the nurse chemical dependency today as well and has not been recommended about dialysis. OBJECTIVE: VITAL SIGNS: The temperature noted 99.2 degree Fahrenheit, normal temperature; respiratory rate of 18-32 is the maximum with the mechanical ventilator was noted about 20. Heart rate of 77, blood pressure 135/43 to 128/55. The pulse oxygen saturation was noted on 65%, 90% currently after intubation and mechanical vent 60%, oxygen saturation was noted as 95% to 96% saturation. HEENT: Currently, the patient intubated orally. NG tube were noted in place in the left nostril. Mild epistaxis noted at this time, which has been currently stopped with pressure. Head was atraumatic. Eyes, nonicterus. CARDIOVASCULAR: S1, S2 audible. LUNGS: Noted scattered crackles of the lungs bilaterally. ABDOMEN: Soft, nontender. Bowel sounds present. EXTREMITIES: The patient was noted without any edema with chronic changes. Skin changes were also noted chronic. CENTRAL NERVOUS SYSTEM: No focal deficit noted earlier for the patient currently sedated with IV Diprivan. MUSCULOSKELETAL: No acute deformity. LABORATORY DATA: Renal function panel today, BUN 91, creatinine 3.68, glucose 113, chloride of 96, phosphorus 5.0, magnesium 2.5, albumin 2.8. The blood culture from the 15th showed no bacterial growth. The arterial blood gas, 50% oxygen for the patient earlier, pH of 7.35, pCO2 of 40, pO2 of 79.1. There was no CBC done today. The chest x-ray of the patient that was completed. The patient after intubation and mechanical ventilation review shows evidence of patchy infiltration in the right lower lobe as a new finding with pulmonary venous congestion. IMPRESSION: 1. The patient who has been currently noted with progressive worsening respiratory failure. The patient with combination of most likely pulmonary venous congestion with uncontrolled hypertension as well as possibility of acute pneumonia superimposed cannot be excluded. 2. The patient with overall fluid status. 3. End-stage renal failure, regular hemodialysis with incomplete dialysis given [place], [place] PROGRESS NOTE NAME: AMANDA FERRIS UNIT #: [id number] ROOM: [facility] DOCTOR: GARY ROJO MD,MYNOR BIRTHDATE: [birth year] yesterday. 4. Protein calorie malnutrition status was also noted. 5. The patient acute exacerbation of chronic obstructive pulmonary disease/bronchial asthma. PLAN OF MANAGEMENT: Garcia culture for the patient will be ordered. Hemodialysis per recommendation of Nephrology services. Continue nutrition support for the patient from the NG tube at this time which was accidentally removed 24 hours ago. Arterial blood gas repeated 2 hours postintubation. Continue use of the IV Diprivan and Versed combination for this patient for adequate sedation. Repeat another endotracheal aspirate for Gram stain and culture as well. Also, obtain 2 sets of blood cultures. Antibiotic was started as cefepime for this patient 2 g IV daily as well as vancomycin dose per pharmacy according to the end-stage renal failure. The doxycycline, which has been used previously has been discontinued. Continue Solu-Medrol 40 mg daily for patient medical exacerbation of COPD. The nutritional support will be resumed for the patient with the use of the Nepro. TIME SPENT: Total time for pulmonary critical care evaluation and management was 42 minutes. MYNOR VEGA MD CM:PNTRANS [id number] MYNOR ROJO MD 07/26/17 2259 interface
--- NOTE | ~2017-07-20 | PR ---
[place], [place] PROGRESS NOTE NAME: [facility]ERRIS [id number] UNIT #: [id number] ROOM: [facility] DOCTOR: GARY ROJO MD,MYNOR BIRTHDATE: [birth year] DOS: 07/23/2017 PULMONARY CRITICAL CARE EVALUATION AND MANAGEMENT SUBJECTIVE: She remains on mechanical ventilator at this time and has not been noted hemodynamic instability. Bronchoscopy was done previously. She has been noted to be appropriately awake with reduction in sedation following vocal commands with sedation vacation per nursing staff. The feeding was continued for the patient at 20 mL an hr. She has not been noted with residual problems with that and the Reglan was also started via the orogastric tube. She has not been noted with any vomiting. There was no abdominal distention. This morning, the patient is receiving her routine hemodialysis. OBJECTIVE: VITAL SIGNS: Temperature curve on review was noted as normal temperature in the past 24 hours, respiratory rate ranged between 17 and 23, heart rate 66 and 72, blood pressure 142 over 51 to 157 over 48. The intake for the patient recorded as 1187 mL, output 500 mL. Pulse oxygen saturation on 60% noted as 99% saturation on ventilator. HEENT: The patient currently orally intubated. Gastric tube is in place. NECK: Supple. JVD was not elevated. Head was atraumatic. Eyes, nonicterus. CARDIOVASCULAR: S1, S2 are audible. LUNGS: The patient was noted with [id number] decreased breath sounds in the lungs bilaterally. ABDOMEN: Soft, nontender. EXTREMITIES: The patient is without any edema. CENTRAL NERVOUS SYSTEM: The patient was noted with appropriate mental status. Further examination cannot be done. MUSCULOSKELETAL SYSTEM: No obvious deformity. LABORATORY DATA AND IMAGING STUDIES: Arterial blood gas for the patient that was done this morning, tidal volume 550, rate of 12, PEEP of 10; the pH of 7.38, PCO2 42.8, PO2 81.3. CBC this morning; WBC count 15.4, hemoglobin 11.6, hematocrit 34.4 and platelet count of 71,000. CMP; BUN 100, creatinine 4.12 and glucose 172 that was done predialysis. AST was noted 71, ALT 80. X-ray shows endotracheal tube was noted about 5 cm or more above the eloise level. IMPRESSION: 1. The patient noted with acute respiratory failure with acute hypercapnia. The patient with acute exacerbation of chronic obstructive pulmonary disease and bronchial asthma and acute aspiration pneumonia cannot be completely excluded. 2. Vomiting was noted to have resolved at this time. 3. Protein-calorie malnutrition. 4. Abnormal liver function testing related to possibility of sepsis. Other etiology remains in consideration. 5. The patient with end-stage renal failure, regular hemodialysis. 6. Resolution of the pulmonary edema for this patient with flash pulmonary edema secondary to uncontrolled hypertension. 7. Uncontrolled hypertension, noted well controlled. [place], [place] PROGRESS NOTE NAME: AMANDA FERRIS UNIT #: [id number] ROOM: [facility] DOCTOR: GARY ROJO MD,MYNOR BIRTHDATE: [birth year] PLAN OF MANAGEMENT: Endotracheal tube has been readjusted for the patient. Chest x-ray which was repeated shows endotracheal tube currently noted at 1.5 cm above the eloise level. Readjustment of the endotracheal tube was done for the patient with withdrawal of the endotracheal tube by 1.5 cm to keep it at appropriate level. Monitoring all the culture results. Nutrition support will be increased. Nepro for the patient to be given as 40 mL an hour at this time. Close monitoring for any residual or vomiting would be done. Repeat the prealbumin level. Monitor LFTs. Continue bronchodilators and corticosteroids at this time. The dose was decreased yesterday for the patient 40 mg Solu-Medrol b.i.d. that will be continued. Monitor chest x-ray as well. Supportive care, other therapy, plan of management as previously. Usual care. Additional treatment changes will be done based on the progression of the illness. Other plan of management and care as well. TIME SPENT: Total time for pulmonary critical care evaluation and management for the patient was 35 minutes. MYNOR VEGA MD CM:LORI [phone] MYNOR ROJO MD 07/31/17 5125 interface
--- NOTE | ~2017-07-20 | CON ---
[place], [place] REPORT OF CONSULTATION NAME: AMANDA FERRIS UNIT #: [id number] ROOM: [facility] [birth year] DOS: 07/21/2017 The patient in Intensive Care Unit, examined. HISTORY OF PRESENT ILLNESS: The patient is a 76-year-old patient, very well known to me with history of cardiomyopathy, severe coronary artery disease previously, and chronic renal failure. Admitted with significant shortness of breath. The patient got intubated. The patient continues to be intubated. The patient was in acute pulmonary edema. She should have been dialyzed yesterday, but it has not and they are coming to do the dialysis today. Pressure was elevated earlier and she was severely hypertensive, started her on the nitro drip and remains on mechanical ventilation. Most of the information from the chart. PAST MEDICAL HISTORY: End-stage COPD, severe coronary artery disease, cardiomyopathy, respiratory failure, CVA, left bundle-branch block, and cardiac dysrhythmia. PAST SURGICAL HISTORY: Previous intubations, nephrectomy, permanent dialysis, and AICD. SOCIAL HISTORY: Lives at home. No history of alcohol, tobacco, or drug abuse. FAMILY HISTORY: Positive for hypertension. CURRENT MEDICATIONS: Noted use of intravenous Tridil drip, Tylenol and IV propofol, and please refer to the chart. DRUG ALLERGIES: PENICILLIN, SULFA, PREDNISOLONE, AND ZITHROMAX. PHYSICAL EXAMINATION: GENERAL: The patient is intubated and sedated. VITAL SIGNS: Blood pressure seems to be much better compared to before. NECK: Supple. Elevated JVD. LUNGS: Diminished air entry, bilateral rales. HEART: Sounds are regular with an S3. ABDOMEN: Soft, nontender. NEUROLOGICAL: Moving extremities. LABORATORY DATA: Hemoglobin 11 and hematocrit 33.8. BUN and creatinine is 3.9 and 81. Chest x-ray showed acute pulmonary edema. EKG shows left bundle-branch block with intermittent paced rhythm. IMPRESSION: The patient with acute respiratory failure, acute pulmonary edema, echocardiogram showed an ejection fraction of 25%, chronic renal failure, volume overload, tachycardia, and hypertensive emergency. RECOMMENDATIONS: Continue dialysis as soon as possible. Continue antihypertensives. Continue the beta blockers and nitrates. Emergency dialysis [place], [place] REPORT OF CONSULTATION NAME: AMANDA FERRIS UNIT #: [id number] ROOM: [facility] DOCTOR: SHARRON DUBON,JEANCARLOS BIRTHDATE: [birth year] and condition is guarded. JEANCARLOS MCDERMOTT MD CM:CONSTR:REPORT OF CONSULTATION 0733 07/21/17 0753 interface
--- NOTE | ~2017-07-20 | PR ---
[place], [place] PROGRESS NOTE NAME: AMANDA FERRIS [facility] #: [id number] UNIT #: [id number] ROOM: [facility] DOCTOR: GARY ROJO MD,MYNOR BIRTHDATE: [birth year] DOS: 07/21/2017 PULMONARY CRITICAL CARE EVALUATION AND MANAGEMENT SUBJECTIVE: The patient remains on mechanical ventilator. The patient has been started on hemodialysis about an hour or 2 hours ago. She is receiving hemodialysis noted with some abdominal breathing at this time. The patient has been sedated with IV Diprivan effectively. She has not been reported any other respiratory changes, remains on mechanical ventilator with the oxygen supplementation remains stable. The patient has an echocardiogram that was completed yesterday as well. The report was reviewed for this patient shows moderate mitral valve regurgitation with trace tricuspid regurgitation, left ventricular ejection fraction noted only 15%. The feeding was continued, which has been well tolerated, low grade fever of the patient was noted. OBJECTIVE: VITAL SIGNS: The patient showed the temperature highest of 100.5 degree Fahrenheit to low grade fever. The respiratory rate of 28-19, heart rate of 73-64, blood pressure 106-80/49-128/82. Intake for the patient is 1033, output of the urine was recorded 550 mL. Pulse oxygen saturation on 50% oxygen, 97% saturation. HEENT: The patient remained orally intubated. Orogastric tube in place. NECK: Supple. CARDIOVASCULAR SYSTEM: S1, S2 is audible. LUNGS: The patient was noted with moderate generalized reduction in the past noted diffuse expiratory wheezing. ABDOMEN: Noted with soft but mild distention. Bowel sounds present. There was no tenderness. EXTREMITIES: Without any acute changes. Dryness of the skin was noted past, chronic changes. CENTRAL NERVOUS SYSTEM: Currently, the patient is sedated. MUSCULOSKELETAL SYMPTOM: No gross deformities. LABORATORY DATA: CBC of the patient this morning: WBC count normal, hemoglobin 11.3, hematocrit 33.8, platelet count of 70,000. The CMP of the patient that was done this morning shows glucose 139, BUN 81, creatinine 3.93. Potassium normal. AST 111, ALT 103, total protein 5.9, albumin 3.0. Arterial blood gas for the patient that was done this morning, pH of 7.38, pCO2 of 41, pO2 176 on 50% oxygen. Chest x-ray reviewed of the patient that was done this morning shows endotracheal tube was noted in appropriate position, AICD in position. Small pleural fluid noted, basilar area of atelectasis. Endotracheal aspirate of the patient yesterday, Gram stain, many white blood cells, few epithelial cells, many gram-positive cocci in pairs and chains, few gram-positive cocci in clusters. Normal mason. Urine culture, no bacterial growth. IMPRESSION: 1. The patient who has been currently noted at this time with acute persistent severe hypoxic respiratory failure and hypercapnia. 2. Acute exacerbation of chronic obstructive pulmonary disease with increased wheezing. [place], [place] PROGRESS NOTE NAME: AMANDA FERRIS UNIT #: [id number] ROOM: [facility] DOCTOR: GARY ROOJ MD,[facility] BIRTHDATE: [birth year] 3. The patient with protein-calorie malnutrition status as well. 4. Severe cardiomyopathy was also noticed of the patient with moderate mitral valve regurgitation. 5. Uncontrolled hypertension noted intermittently. 6. History of bronchial asthma as well. 7. Rule out superimposed infection. 8. Basilar area of atelectasis of the patient related to most likely mucus impaction. 9. End-stage renal failure, on chronic regular hemodialysis as well. The patient is receiving the usual dialysis today. 10. Overall severe debility of the patient was also noted with other medical illnesses. 11. Question of allergy to the CORTICOSTEROIDS for the patient most likely related to mood swings as discussed with the patient and family members. PLAN OF TREATMENT: Discontinuation of the prednisone completely, switched the patient to Solu-Medrol intravenously 40 mg, 8 hours, first dose will be given today. One additional breathing treatment will be given this morning as well. Maximize the nutritional status. Monitor prealbumin level of the patient as well. Continuation of ventilator bundle management. At this time, the patient has not been noted a candidate for liberation of mechanical ventilation today. Sedation for the comfort will be continued. Continuation of bronchodilators administration for the patient as well. Antibiotic will be continued, IV doxycycline until the infection completely excluded, any changes of antibiotic if necessary will be done. Follow up with monitoring of the culture results of the blood as well as in the endotracheal aspirate. Continue to maximize the cardiac therapy. Hypertension management of the patient, which is noted uncontrolled has been done by the Cardiology Services. Continuation of hemodialysis. Usual care, other treatment plan and management as well. Additional treatment changes continued to be made based on progression of the illness. Total time on pulmonary critical care evaluation and management today was 35 minutes. [place], [place] PROGRESS NOTE NAME: AMANDA FERRIS UNIT #: [id number] ROOM: [facility] DOCTOR: MYNOR LEUNG MD BIRTHDATE: [birth year] MYNOR VEGA MD CM:PNTRANS [phone] MYNOR ROJO MD 07/22/17 0304 interface
--- NOTE | ~2017-07-20 | PR ---
[place], [place] PROGRESS NOTE NAME: AMANDA FERRIS UNIT #: [id number] ROOM: [facility] DOCTOR: JEANCARLOS MCDERMOTT MD BIRTHDATE: [birth year] DOS: 07/26/2017 SUBJECTIVE: A 24-hour events noted. Discussed with the nursing staff. The patient is being extubated on Thursday. She still has significant dyspnea on exertion. She had 2 hours of treatment with her dialysis yesterday. She is still very short of breath, but she is sitting. Significantly elevated JVD. The patient, as mentioned, is a renal patient. PHYSICAL EXAMINATION: VITAL SIGNS: Blood pressure is 120/50. DIAGNOSTIC DATA: Sinus tachycardia with intermittent paced rhythm. REVIEW OF SYSTEMS: Possible because of severe shortness of breath. PHYSICAL EXAMINATION: NECK: Supple, elevated JVD. LUNGS: Diminished breath sounds. HEART: Sounds are paced with an S3 and an S4. ABDOMEN: Soft, nontender. EXTREMITIES: Intact pulses. NEUROLOGIC: Lethargic but arousable. She has a fluid balance positive at 624, still putting out some urine. She is dialysis dependent. LABORATORY DATA: Shows hemoglobin 12.1 and hematocrit 35.8. BUN and creatinine is 91 and 3.6. Calcium is 9.2 and glucose is 113. IMPRESSION: The patient with severe left ventricular dysfunction, cardiomyopathy, respiratory failure, systolic congestive heart failure, renal failure, end-stage chronic obstructive pulmonary disease. PLAN: Continue the Plavix. Continue the carvedilol. Continue to dialyze the patient. Condition is guarded. Check the I's and O's and I will follow up. [place], [place] PROGRESS NOTE NAME: AMANDA FERRIS UNIT #: [id number] ROOM: [facility] DOCTOR: JEANCARLOS MCDERMOTT MD BIRTHDATE: [birth year] JEANCARLOS MCDERMOTT MD CM:PNTRANS 7 JEANCARLOS MCDERMOTT MD 07/26/1736 interface
--- NOTE | ~2017-07-20 | PR ---
[place], [place] PROGRESS NOTE NAME: [id number] UNIT #: [id number] ROOM: [facility] DOCTOR: GARY ROJO MD,MYNOR BIRTHDATE: [birth year] DOS: 07/27/2017 SUBJECTIVE: She has been noted progressive changes in mental status. The patient unconsciousness with tachypnea, did not tolerate the hemodialysis. She has been intubated yesterday started on mechanical ventilation. The patient was continued on other previous treatment at this time as ordered with mild hypertension noted previously. The patient had A line inserted yesterday as well. OBJECTIVE: VITAL SIGNS: Normal temperature, respiratory rate 25-18, heart rate of 86-84, blood pressure 114/48-112/48, pulse oxygen saturation recorded as 90-92% or 55% oxygen supplementation assist control, volume control mechanical ventilation. HEENT: The patient remains intubated. Orogastric and nasogastric tube is in place. NECK: Supple. CARDIOVASCULAR: S1, S2 audible. LUNGS: The patient noted as scattered wheezing in the lungs bilaterally. Occasional crackles. ABDOMEN: Soft, nontender. EXTREMITIES: The patient noted chronic changes. MUSCULOSKELETAL: No deformities. GENITOURINARY: Currently sedated with changes in mental status. LABORATORY DATA: Blood culture was ordered yesterday noted gram-positive cocci in clusters in both bottles. The culture of the endotracheal aspirate with heavy growth of gram-positive cocci as well. CBC: WBC count 13.9, hemoglobin 12, hematocrit 35.8, platelet count was 72,000. CMP of the patient for this morning, BUN 123, creatinine 5.31. IMPRESSION: 1. Severe sepsis. The patient with acute bacteremia with Gram-positive cocci. The patient with suspected methicillin-resistant Staphylococcus aureus for enterococcus infection. 2. End-stage renal failure, hemodialysis. 3. Acute respiratory failure with acute pneumonia as well. 4. End-stage renal failure is a chronic problem. PLAN OF TREATMENT: At this time, the patient has developed progressive worsening of the medical condition and the patient's advanced directive. The patient stated to the family members not to prolong her mechanical ventilation or dependency on the ventilator at this time. The patient's condition will be consistent with reversible severe sepsis with bacteremia. The patient's condition will be considered terminally irreversible at this time. If agreed upon by the primary care physician, the patient's care to be terminated as per requested by the family member; however, prognosis is great. [place], [place] PROGRESS NOTE NAME: JOSYAMANDA M UNIT #: [id number] ROOM: [facility] DOCTOR: MYNOR LEUNG MD BIRTHDATE: [birth year] MYNOR VEGA MD CM:PNTRANS [phone] MYNOR ROJO MD 07/28/17 0113 interface
[2017-07-20 03:10] LABS: HEMATOCRIT 41.3 % (37.0-47.0); HEMOGLOBIN 13.4 g/dl (12.0-16.0); MEAN CELL VOLUME 99.3 fl (81.0-99.0); MEAN CORPUSCULAR HGB 32.2 pg (27.0-31.0); MEAN CORPUSCULAR HGB CONC 32.4 g/dl (33.0-37.0); MEAN PLATELET VOLUME 13.2 fl (9.6-12.3); PLATELET COUNT AUTOMATED 115 10*3/uL (130-400); RED BLOOD COUNT 4.16 10*6/uL (4.10-5.10); RED CELL DISTRI WIDTH 14.7 % (0-14.5); WHITE BLOOD COUNT 14.6 10*3/uL (4.8-10.8)
[2017-07-20 03:30] LABS: ALBUMIN 3.9 gm/dl (3.1-4.5); CREATININE 3.34 mg/dL (0.55-1.02); POTASSIUM 4.5 mmol/L (3.5-5.1); TOTAL PROTEIN 7.4 gm/dL (6.4-8.2)
[2017-07-20 03:31] LABS: TROPONIN I 0.061 ng/ml (<0.045)
[2017-07-20 03:35] LABS: PLATELET SUFFICIENCY LOW (NORMAL); TOTAL CELLS COUNTED 100 #CELLS
[2017-07-20 07:08] LABS: ABG BASE EXCESS -1.3 mmol/L (-2.0-2.0); ABG HCO3 24.3 mmol/l (22-26); ABG O2 SATURATION 98.5 % (95-97); ARTERIAL BLOOD GAS PCO2 47.9 mmHg (35-45); ARTERIAL BLOOD GAS PH 7.328 (7.35-7.45)
[2017-07-20 10:40] LABS: ABG BASE EXCESS -0.4 mmol/L (-2.0-2.0); ABG HCO3 26.3 mmol/l (22-26); ABG O2 SATURATION 63.1 % (95-97); ARTERIAL BLOOD GAS PCO2 58.4 mmHg (35-45); ARTERIAL BLOOD GAS PH 7.283 (7.35-7.45)
[2017-07-20 10:43] LABS: ARTERIAL BLOOD GAS PO2 38.9 mmHg (80-90)
[2017-07-20 10:55] LABS: BILIRUBIN NEGATIVE (NEGATIVE); BLOOD NEGATIVE (NEGATIVE); CLARITY CLOUDY (CLEAR); COLOR YELLOW (YELLOW); GLUCOSE NEGATIVE (NEGATIVE); KETONE NEGATIVE (NEGATIVE); LEUKO ESTERASE NEGATIVE (NEGATIVE); NITRITE NEGATIVE (NEGATIVE); SPECIFIC GRAVITY 1.025 (1.005-1.030); UROBILINOGEN 0.2 E.U./dl (0.2-1.0)
[2017-07-20 11:07] LABS: EPITHELIAL CELLS 31-40; MUCOUS 1+
[2017-07-20 11:43] LABS: ABG BASE EXCESS 0.7 mmol/L (-2.0-2.0); ABG O2 SATURATION 97.6 % (95-97); ARTERIAL BLOOD GAS PCO2 43.2 mmHg (35-45); ARTERIAL BLOOD GAS PH 7.387 (7.35-7.45); ARTERIAL BLOOD GAS PO2 94.9 mmHg (80-90)
[2017-07-21] VITALS (12 sets, daily range): BP systolic 128–194; BP diastolic 48–88
[2017-07-21 04:36] LABS: BASO % 0.1 % (0.0-1.0); LYMPH # 0.6 10*3/uL (1.3-4.4); LYMPH % 7.4 % (27.0-41.0); MEAN CELL VOLUME 97.1 fl (81.0-99.0); MEAN CORPUSCULAR HGB 32.5 pg (27.0-31.0); MEAN CORPUSCULAR HGB CONC 33.4 g/dl (33.0-37.0); MEAN PLATELET VOLUME 13.6 fl (9.6-12.3); MONO # 0.4 10*3/uL (0.1-1.0); MONO % 4.4 % (3.0-9.0); NEUT # 7.4 10*3/uL (2.3-7.9); NEUT % 86.7 % (47.0-73.0); RED BLOOD COUNT 3.48 10*6/uL (4.10-5.10); RED CELL DISTRI WIDTH 14.8 % (0-14.5); WHITE BLOOD COUNT 8.5 10*3/uL (4.8-10.8)
[2017-07-21 04:37] LABS: HEMATOCRIT 33.8 % (37.0-47.0); HEMOGLOBIN 11.3 g/dl (12.0-16.0); PLATELET COUNT AUTOMATED 70 10*3/uL (130-400)
[2017-07-21 04:52] LABS: CREATININE 3.93 mg/dL (0.55-1.02); POTASSIUM 4.7 mmol/L (3.5-5.1); TOTAL PROTEIN 5.9 gm/dL (6.4-8.2)
[2017-07-21 05:54] LABS: ABG BASE EXCESS -0.5 mmol/L (-2.0-2.0); ABG HCO3 23.9 mmol/l (22-26); ABG O2 SATURATION 99.1 % (95-97); ARTERIAL BLOOD GAS PH 7.384 (7.35-7.45)
[2017-07-22] VITALS (12 sets, daily range): BP systolic 97–147; BP diastolic 46–70
[2017-07-22 06:02] LABS: ALBUMIN 3.1 gm/dl (3.1-4.5); CREATININE 3.64 mg/dL (0.55-1.02); PHOSPHOROUS 6.8 mg/dL (2.5-4.9); POTASSIUM 4.5 mmol/L (3.5-5.1); TOTAL PROTEIN 6.4 gm/dL (6.4-8.2)
[2017-07-22 06:24] LABS: HEMATOCRIT 35.9 % (37.0-47.0); HEMOGLOBIN 11.9 g/dl (12.0-16.0); MEAN CELL VOLUME 96.2 fl (81.0-99.0); MEAN CORPUSCULAR HGB 31.9 pg (27.0-31.0); MEAN CORPUSCULAR HGB CONC 33.1 g/dl (33.0-37.0); MEAN PLATELET VOLUME 13.9 fl (9.6-12.3); PLATELET COUNT AUTOMATED 68 10*3/uL (130-400); RED BLOOD COUNT 3.73 10*6/uL (4.10-5.10); RED CELL DISTRI WIDTH 14.9 % (0-14.5); WHITE BLOOD COUNT 13.4 10*3/uL (4.8-10.8)
[2017-07-22 07:39] LABS: BURR CELLS FEW; PLATELET SUFFICIENCY LOW (NORMAL); TOTAL CELLS COUNTED 100 #CELLS
[2017-07-22 08:16] LABS: ABG BASE EXCESS 1.7 mmol/L (-2.0-2.0); ABG HCO3 26.7 mmol/l (22-26); ABG O2 SATURATION 97.4 % (95-97); ARTERIAL BLOOD GAS PCO2 44.5 mmHg (35-45); ARTERIAL BLOOD GAS PH 7.391 (7.35-7.45); ARTERIAL BLOOD GAS PO2 97.5 mmHg (80-90)
[2017-07-22 17:58] LABS: ABG BASE EXCESS 1.6 mmol/L (-2.0-2.0); ABG HCO3 25.9 mmol/l (22-26); ABG O2 SATURATION 93.3 % (95-97); ARTERIAL BLOOD GAS PCO2 39.9 mmHg (35-45); ARTERIAL BLOOD GAS PH 7.423 (7.35-7.45); ARTERIAL BLOOD GAS PO2 61.1 mmHg (80-90)
[2017-07-23] VITALS (11 sets, daily range): BP systolic 107–157; BP diastolic 48–72
[2017-07-23 06:14] LABS: HEMATOCRIT 34.4 % (37.0-47.0); HEMOGLOBIN 11.6 g/dl (12.0-16.0); MEAN CELL VOLUME 96.1 fl (81.0-99.0); MEAN CORPUSCULAR HGB 32.4 pg (27.0-31.0); MEAN CORPUSCULAR HGB CONC 33.7 g/dl (33.0-37.0); MEAN PLATELET VOLUME 14.5 fl (9.6-12.3); PLATELET COUNT AUTOMATED 71 10*3/uL (130-400); RED BLOOD COUNT 3.58 10*6/uL (4.10-5.10); RED CELL DISTRI WIDTH 14.7 % (0-14.5); WHITE BLOOD COUNT 15.4 10*3/uL (4.8-10.8)
[2017-07-23 06:18] LABS: ALBUMIN 2.9 gm/dl (3.1-4.5); CREATININE 4.12 mg/dL (0.55-1.02); PHOSPHOROUS 6.1 mg/dL (2.5-4.9); POTASSIUM 4.1 mmol/L (3.5-5.1); TOTAL PROTEIN 6.1 gm/dL (6.4-8.2)
[2017-07-23 06:47] LABS: PLATELET SUFFICIENCY LOW (NORMAL); TOTAL CELLS COUNTED 100 #CELLS
[2017-07-23 06:48] LABS: VACUOLATION OF NEUTROPHILS SLIGHT
[2017-07-23 06:49] LABS: BURR CELLS FEW
[2017-07-23 07:45] LABS: ABG BASE EXCESS 0.5 mmol/L (-2.0-2.0); ABG HCO3 25.4 mmol/l (22-26); ARTERIAL BLOOD GAS PCO2 42.8 mmHg (35-45); ARTERIAL BLOOD GAS PH 7.385 (7.35-7.45); ARTERIAL BLOOD GAS PO2 81.3 mmHg (80-90)
[2017-07-23 19:30] LABS: ABG BASE EXCESS 3.3 mmol/L (-2.0-2.0); ABG HCO3 27.6 mmol/l (22-26); ABG O2 SATURATION 95.6 % (95-97); ARTERIAL BLOOD GAS PCO2 43.2 mmHg (35-45); ARTERIAL BLOOD GAS PH 7.423 (7.35-7.45); ARTERIAL BLOOD GAS PO2 82.8 mmHg (80-90)
[2017-07-24] VITALS (9 sets, daily range): BP systolic 124–165; BP diastolic 49–69
[2017-07-24 05:48] LABS: HEMATOCRIT 36.2 % (37.0-47.0); HEMOGLOBIN 12.2 g/dl (12.0-16.0); MEAN CELL VOLUME 95.3 fl (81.0-99.0); MEAN CORPUSCULAR HGB 32.1 pg (27.0-31.0); MEAN CORPUSCULAR HGB CONC 33.7 g/dl (33.0-37.0); MEAN PLATELET VOLUME 13.6 fl (9.6-12.3); PLATELET COUNT AUTOMATED 70 10*3/uL (130-400); RED CELL DISTRI WIDTH 14.7 % (0-14.5); WHITE BLOOD COUNT 13.9 10*3/uL (4.8-10.8)
[2017-07-24 05:59] LABS: ALBUMIN 2.8 gm/dl (3.1-4.5); CREATININE 3.74 mg/dL (0.55-1.02); PHOSPHOROUS 5.8 mg/dL (2.5-4.9); POTASSIUM 4.1 mmol/L (3.5-5.1); TOTAL PROTEIN 6.4 gm/dL (6.4-8.2)
[2017-07-24 06:32] LABS: TOTAL CELLS COUNTED 100 #CELLS
[2017-07-24 06:33] LABS: BURR CELLS FEW; OVALOCYTES FEW; PLATELET SUFFICIENCY LOW (NORMAL)
[2017-07-24 07:52] LABS: ABG BASE EXCESS 2.3 mmol/L (-2.0-2.0); ABG HCO3 26.8 mmol/l (22-26); ABG O2 SATURATION 97.2 % (95-97); ARTERIAL BLOOD GAS PCO2 43.7 mmHg (35-45); ARTERIAL BLOOD GAS PH 7.405 (7.35-7.45)
[2017-07-24 12:10] LABS: ABG BASE EXCESS 2.1 mmol/L (-2.0-2.0); ABG O2 SATURATION 92.3 % (95-97); ARTERIAL BLOOD GAS PCO2 44.9 mmHg (35-45); ARTERIAL BLOOD GAS PH 7.394 (7.35-7.45); ARTERIAL BLOOD GAS PO2 68.1 mmHg (80-90)
[2017-07-24 12:41] LABS: ABG BASE EXCESS 1.5 mmol/L (-2.0-2.0); ABG HCO3 25.9 mmol/l (22-26); ABG O2 SATURATION 95.4 % (95-97); ARTERIAL BLOOD GAS PCO2 41.9 mmHg (35-45); ARTERIAL BLOOD GAS PH 7.408 (7.35-7.45); ARTERIAL BLOOD GAS PO2 78.5 mmHg (80-90)
[2017-07-25] VITALS (7 sets, daily range): BP systolic 82–158; BP diastolic 0–76
[2017-07-25 05:59] LABS: BASO % 0.2 % (0.0-1.0); HEMATOCRIT 35.8 % (37.0-47.0); HEMOGLOBIN 12.1 g/dl (12.0-16.0); LYMPH # 0.6 10*3/uL (1.3-4.4); LYMPH % 5.7 % (27.0-41.0); MEAN CELL VOLUME 95.2 fl (81.0-99.0); MEAN CORPUSCULAR HGB 32.2 pg (27.0-31.0); MEAN CORPUSCULAR HGB CONC 33.8 g/dl (33.0-37.0); MEAN PLATELET VOLUME 13.9 fl (9.6-12.3); MONO # 0.4 10*3/uL (0.1-1.0); MONO % 3.2 % (3.0-9.0); NEUT # 9.8 10*3/uL (2.3-7.9); NEUT % 89.9 % (47.0-73.0); PLATELET COUNT AUTOMATED 69 10*3/uL (130-400); RED BLOOD COUNT 3.76 10*6/uL (4.10-5.10); RED CELL DISTRI WIDTH 14.2 % (0-14.5); WHITE BLOOD COUNT 10.9 10*3/uL (4.8-10.8)
[2017-07-25 06:02] LABS: ALBUMIN 2.7 gm/dl (3.1-4.5); CREATININE 4.06 mg/dL (0.55-1.02); PHOSPHOROUS 5.1 mg/dL (2.5-4.9); POTASSIUM 3.9 mmol/L (3.5-5.1); TOTAL PROTEIN 6.2 gm/dL (6.4-8.2)
[2017-07-25 07:53] LABS: ABG BASE EXCESS 6.2 mmol/L (-2.0-2.0); ABG HCO3 30.5 mmol/l (22-26); ABG O2 SATURATION 94.2 % (95-97); ARTERIAL BLOOD GAS PCO2 43.5 mmHg (35-45); ARTERIAL BLOOD GAS PH 7.459 (7.35-7.45); ARTERIAL BLOOD GAS PO2 71.4 mmHg (80-90)
[2017-07-26] VITALS (17 sets, daily range): BP systolic 88–157; BP diastolic 39–55
[2017-07-26 06:18] LABS: ALBUMIN 2.8 gm/dl (3.1-4.5); CREATININE 3.68 mg/dL (0.55-1.02)
[2017-07-26 11:56] LABS: ABG BASE EXCESS 0.8 mmol/L (-2.0-2.0); ABG HCO3 26.1 mmol/l (22-26); ABG O2 SATURATION 94.4 % (95-97); ARTERIAL BLOOD GAS PCO2 48.3 mmHg (35-45); ARTERIAL BLOOD GAS PH 7.354 (7.35-7.45); ARTERIAL BLOOD GAS PO2 79.1 mmHg (80-90)
[2017-07-26 16:42] LABS: ABG BASE EXCESS 0.1 mmol/L (-2.0-2.0); ABG HCO3 24.7 mmol/l (22-26); ABG O2 SATURATION 97.2 % (95-97); ARTERIAL BLOOD GAS PH 7.379 (7.35-7.45)
[2017-07-27] VITALS: BP 117/52
[2017-07-27 04:00] VITALS: BP 113/44
[2017-07-27 05:26] LABS: ALBUMIN 2.7 gm/dl (3.1-4.5); CREATININE 5.51 mg/dL (0.55-1.02)
[2017-07-27 05:52] LABS: PHOSPHOROUS 8.9 mg/dL (2.5-4.9)
[2017-07-27 06:03] LABS: HEMATOCRIT 35.8 % (37.0-47.0); MEAN CELL VOLUME 96.2 fl (81.0-99.0); MEAN CORPUSCULAR HGB 32.3 pg (27.0-31.0); MEAN CORPUSCULAR HGB CONC 33.5 g/dl (33.0-37.0); PLATELET COUNT AUTOMATED 72 10*3/uL (130-400); RED BLOOD COUNT 3.72 10*6/uL (4.10-5.10); RED CELL DISTRI WIDTH 14.5 % (0-14.5); WHITE BLOOD COUNT 13.9 10*3/uL (4.8-10.8)
[2017-07-27 07:13] LABS: BURR CELLS FEW; PLATELET SUFFICIENCY LOW (NORMAL); TOTAL CELLS COUNTED 100 #CELLS
[2017-07-27 08:00] VITALS: BP 110/48
[2017-07-27 12:00] VITALS: BP 125/48
== END 2017-07-27 15:25 | disposition hospice, home (50) | DRG 870 ==
LOC: ED 02:25 → ICCU 05:24 → EDHOLD 05:24 → ICCU 08:12
PROVIDERS: Emergency Medicine Emergency Medical Services; Family Medicine; Internal Medicine; Internal Medicine Critical Care Medicine; Internal Medicine Nephrology
PROC: 0BH18EZ Insertion of Endotracheal Airway into Trachea, Via Natural or Artificial Opening Endoscopic (ICD-10-PCS; principal; 2017-07-20)
PROC: 5A1955Z Respiratory Ventilation, Greater than 96 Consecutive Hours (ICD-10-PCS; principal; 2017-07-20)
PROC: 5A09357 Assistance with Respiratory Ventilation, Less than 24 Consecutive Hours, Continuous Positive Airway Pressure (ICD-10-PCS; principal; 2017-07-20)
PROC: 5A1D70Z Performance of Urinary Filtration, Intermittent, Less than 6 Hours Per Day (ICD-10-PCS; 2017-07-21)
PROC: 0BH17EZ Insertion of Endotracheal Airway into Trachea, Via Natural or Artificial Opening (ICD-10-PCS; 2017-07-21)
PROC: 5A1D70Z Performance of Urinary Filtration, Intermittent, Less than 6 Hours Per Day (ICD-10-PCS; 2017-07-23)
PROC: 5A09357 Assistance with Respiratory Ventilation, Less than 24 Consecutive Hours, Continuous Positive Airway Pressure (ICD-10-PCS; 2017-07-24)
PROC: 5A1D70Z Performance of Urinary Filtration, Intermittent, Less than 6 Hours Per Day (ICD-10-PCS; 2017-07-25)
PROC: 5A09357 Assistance with Respiratory Ventilation, Less than 24 Consecutive Hours, Continuous Positive Airway Pressure (ICD-10-PCS; 2017-07-25)
PROC: 5A1D70Z Performance of Urinary Filtration, Intermittent, Less than 6 Hours Per Day (ICD-10-PCS; 2017-07-26)
PROC: 5A1935Z Respiratory Ventilation, Less than 24 Consecutive Hours (ICD-10-PCS; 2017-07-26)
PROC: 02HV33Z Insertion of Infusion Device into Superior Vena Cava, Percutaneous Approach (ICD-10-PCS; 2017-07-26)
PROC: 4A133J1 Monitoring of Arterial Pulse, Peripheral, Percutaneous Approach (ICD-10-PCS; 2017-07-26)
PROC: 03HY32Z Insertion of Monitoring Device into Upper Artery, Percutaneous Approach (ICD-10-PCS; 2017-07-26)
PROC: 4A133B1 Monitoring of Arterial Pressure, Peripheral, Percutaneous Approach (ICD-10-PCS; 2017-07-26)
PROC: 5A09357 Assistance with Respiratory Ventilation, Less than 24 Consecutive Hours, Continuous Positive Airway Pressure (ICD-10-PCS; 2017-07-26)
DX: A41.9 Sepsis, unspecified organism (principal); I21.A1 Myocardial infarction type 2; J69.0 Pneumonitis due to inhalation of food and vomit; J96.21 Acute and chronic respiratory failure with hypoxia; E43 Unspecified severe protein-calorie malnutrition; D69.6 Thrombocytopenia, unspecified; I42.9 Cardiomyopathy, unspecified; I13.2 Hypertensive heart and chronic kidney disease with heart failure and with stage 5 chronic kidney disease, or end stage renal disease; J96.22 Acute and chronic respiratory failure with hypercapnia; N18.6 End stage renal disease; I50.22 Chronic systolic (congestive) heart failure; J44.0 Chronic obstructive pulmonary disease with (acute) lower respiratory infection; I16.1 Hypertensive emergency; J44.1 Chronic obstructive pulmonary disease with (acute) exacerbation; J45.901 Unspecified asthma with (acute) exacerbation; I69.351 Hemiplegia and hemiparesis following cerebral infarction affecting right dominant side; Z66 Do not resuscitate; Z51.5 Encounter for palliative care; R65.20 Severe sepsis without septic shock; R73.9 Hyperglycemia, unspecified; E55.9 Vitamin D deficiency, unspecified; K21.9 Gastro-esophageal reflux disease without esophagitis; Z99.2 Dependence on renal dialysis; I25.10 Atherosclerotic heart disease of native coronary artery without angina pectoris; E78.5 Hyperlipidemia, unspecified; F41.9 Anxiety disorder, unspecified; J20.9 Acute bronchitis, unspecified; D63.8 Anemia in other chronic diseases classified elsewhere; I34.0 Nonrheumatic mitral (valve) insufficiency; R74.0 Nonspecific elevation of levels of transaminase and lactic acid dehydrogenase [LDH]; Z95.810 Presence of automatic (implantable) cardiac defibrillator; Z68.27 Body mass index [BMI] 27.0-27.9, adult; Z95.5 Presence of coronary angioplasty implant and graft; Z85.528 Personal history of other malignant neoplasm of kidney; Z87.891 Personal history of nicotine dependence; Z90.49 Acquired absence of other specified parts of digestive tract; Z90.710 Acquired absence of both cervix and uterus; Z90.5 Acquired absence of kidney; Z79.02 Long term (current) use of antithrombotics/antiplatelets; Z79.82 Long term (current) use of aspirin; Z79.899 Other long term (current) drug therapy; Z88.1 Allergy status to other antibiotic agents; Z91.041 Radiographic dye allergy status; Z88.0 Allergy status to penicillin; Z88.2 Allergy status to sulfonamides; Z88.8 Allergy status to other drugs, medicaments and biological substances; Z91.018 Allergy to other foods; Z82.49 Family history of ischemic heart disease and other diseases of the circulatory system; Z83.79 Family history of other diseases of the digestive system

== ENCOUNTER 2017-07-27 15:31 | Inpatient (IN) | payer OTHER, MEDICARE ==
[~2017-07-27] VITALS: Ht 162.6 cm; Wt 69.4 kg
[2017-07-27 15:30] VITALS: BP 66/33
[2017-07-27 20:47] VITALS: BP 94/42
[2017-07-28] VITALS: BP 82/40
[2017-07-28 08:00] VITALS: BP 172/91; BP 76/43
== END 2017-07-28 21:00 | disposition expired ==
LOC: ICCU 15:31 → 4E 15:31 → ICCU 15:47 → 4E 18:23
DX: I21.A1 Myocardial infarction type 2 (principal); J96.22 Acute and chronic respiratory failure with hypercapnia; E43 Unspecified severe protein-calorie malnutrition; J81.1 Chronic pulmonary edema; J18.1 Lobar pneumonia, unspecified organism; I95.9 Hypotension, unspecified; D69.6 Thrombocytopenia, unspecified; I12.0 Hypertensive chronic kidney disease with stage 5 chronic kidney disease or end stage renal disease; N18.6 End stage renal disease; J44.0 Chronic obstructive pulmonary disease with (acute) lower respiratory infection; Z51.5 Encounter for palliative care; D72.829 Elevated white blood cell count, unspecified; R73.9 Hyperglycemia, unspecified; D72.810 Lymphocytopenia; D72.9 Disorder of white blood cells, unspecified; R74.0 Nonspecific elevation of levels of transaminase and lactic acid dehydrogenase [LDH]; K21.9 Gastro-esophageal reflux disease without esophagitis; I25.10 Atherosclerotic heart disease of native coronary artery without angina pectoris; E78.5 Hyperlipidemia, unspecified; E55.9 Vitamin D deficiency, unspecified; Z66 Do not resuscitate; Z99.2 Dependence on renal dialysis; Z95.810 Presence of automatic (implantable) cardiac defibrillator; Z87.891 Personal history of nicotine dependence